=== PATIENT | male | born 1930 | race Caucasian/White ===

== ENCOUNTER 2018-08-29 15:13 | Emergency (ER) | payer OTHER ==
--- NOTE | 2018-08-29 16:30 | RAD REPORT ---
EXAM DESCRIPTION: CT - [id number] - 08/29/2018 3:59 pm CLINICAL HISTORY: Trauma, head and neck injury. acute head injury COMPARISON: No comparisons TECHNIQUE: Axial 5 mm thick images of the head were obtained. Axial 2 mm thick images of the cervical spine were obtained with sagittal and coronal reconstruction images generated and reviewed. All CT scans are performed using dose optimization technique as appropriate and may include automated exposure control or mA/KV adjustment according to patient size. FINDINGS: CT HEAD WITHOUT CONTRAST: No acute hemorrhage, hydrocephalus or extra-axial collection is identified.Advanced generalized brain atrophy is present with advanced periventricular and deep white matter chronic microvascular ischemi c changes.No areas of brain edema or midline shift. Polypoid mucosal thickening involves the inferior right maxillary antrum. The paranasal sinuses and m astoids are otherwise clear.The calvarium is intact. CT CERVICAL SPINE WITHOUT CONTRAST: No fracture or subluxation.No prevertebral soft tissues swelling is identified. IMPRESSION: No acute intracranial or cervical spine findings.
--- NOTE | 2018-08-29 16:43 | EDPHYS ---
Physician Documentation [facility] Name: Jose Morris Age: 87 yrs Sex: Male : 1930 Arrival Date: 08/29/2018 Time: 15:14 Bed 6 Private MD: ED Physician Miguel Sandoval HPI: 08/29 15:49 This 87 yrs old Male presents to ER via Ambulatory with complaints of Fall jmm Injury. 15:49 Details of fall: The patient fell from an upright position. Onset: The symptoms/episode jmm began/occurred acutely, just prior to arrival. This is an 87 year old male with a history of htn, hlp, hypothyroidism that presents to the ED with no complaints after hitting his head on a eugenio drawer. Patient states losing balance as he was standing next to his bed folding blankets. Denies LOC. Denies neck pain. Denies other injury. . Historical: - Allergies: 15:19 No Known Allergies; hj - PMHx: 15:19 stroke; Hypertension; Hyperlipidemia; Hypothyroidism; hj - PSHx: 15:19 None; hj - Immunization history:: Adult Immunizations unknown. - Social history:: Smoking status: Patient/guardian denies using tobacco. - Ebola Screening: : No symptoms or risks identified at this time. ROS: 15:49 Constitutional: Negative for fever, chills, and weight loss, Cardiovascular: Negative jmm for chest pain, palpitations, and edema, Respiratory: Negative for shortness of breath, cough, wheezing, and pleuritic chest pain. 15:49 Neuro: Negative for altered mental status, headache, loss of consciousness. 15:49 All other systems are negative. Exam: 15:49 Constitutional: This is a well developed, well nourished patient who is awake, alert, jmm and in no acute distress. Eyes: EOMI, no conjunctival erythema appreciated 15:49 Chest/axilla: Normal chest wall appearance and motion. 15:49 Abdomen/GI: Non distended, soft Back: Normal ROM Skin: General appearance color normal MS/ Extremity: Moves all extremities, no obvious deformities appreciated, no edema noted to the lower extremities Neuro: Awake and alert, normal gait Psych: Behavior is normal, Mood is normal, Patient is cooperative and pleasant 15:49 Head/face: small hematoma noted to the right side of the forehead. 15:49 Neck: C-spine: appears grossly normal. 15:49 Cardiovascular: Rate: normal, Rhythm: regular, Pulses: no pulse deficits are appreciated. 15:49 Respiratory: the patient does not display signs of respiratory distress, Respirations: normal, Breath sounds: are clear throughout. Vital Signs: 15:20 Pulse 91; Resp 18; Temp 98.1(TE); Pulse Ox 100% on R/A; Weight 83.46 kg; Height 6 ft. 0 hj in. (182.88 cm); 16:00 BP 127 / 89; Pulse 92; Resp 16; Pulse Ox 99% on R/A; ph 17:00 BP 117 / 76; Pulse 87; Resp 18; Temp 97.8; Pulse Ox 98% on R/A; ph 15:20 Body Mass Index 24.95 (83.46 kg, 182.88 cm) [place] Coma Score: 16:00 Eye Response: spontaneous(4). Verbal Response: oriented(5). Motor Response: obeys ph commands(6). Total: 15. Trauma Score (Adult): 16:00 Eye Response: spontaneous(1); Verbal Response: oriented(1); Motor Response: obeys ph commands(2); Systolic BP: > 89 mm Hg(4); Respiratory Rate: 10 to 29 per min(4); Luciana Score: 15; Trauma Score: 12 17:00 Eye Response: spontaneous(1); Verbal Response: oriented(1); Motor Response: obeys ph commands(2); Systolic BP: > 89 mm Hg(4); Respiratory Rate: 10 to 29 per min(4); [place] Score: 15; Trauma Score: 12 MDM: 15:49 Patient medically screened. [facility] 16:40 Data reviewed: vital signs, nurses notes. Counseling: I had a detailed discussion with krys the patient and/or guardian regarding: the historical points, exam findings, and any diagnostic results supporting the discharge/admit diagnosis, radiology results, the need for outpatient follow up, to return to the emergency department if symptoms worsen or persist or if there are any questions or concerns that arise at home. ED course: CT imaging studies are negative. Patient given head injury return precautions. Family understood and agrees with the plan of care. . 08/29 15:44 Order name: CT Head C Spine; Complete Time: 16:40 krys Administered Medications: No medications were administered Disposition: 08/30 06:56 Co-signature as Attending Physician, Miguel Sandoval MD I agree with the assessment and kdr plan of care. Disposition: 08/29/18 16:42 Discharged to Home. Impression: Superficial injury of head. - Condition is Stable. - Discharge Instructions: Head Injury, Adult. - Medication Reconciliation Form, Thank You Letter, Antibiotic Education, Prescription Opioid Use form. - Follow up: Private Physician; When: 2 - 3 days; Reason: Recheck today's complaints, Continuance of care, Re-evaluation by your physician. Signatures: Dispatcher [employer] EDMS Miguel Sandoval MD MD kdr Mickail, Joel, PA PA Rachel David, RN RN Fabio Alvarez RN RN Corrections: (The following items were deleted from the chart) 08/29 17:13 16:42 08/29/2018 16:42 Discharged to Home. Impression: Superficial injury of head. ph Condition is Stable. Forms are Medication Reconciliation Form, Thank You Letter, Antibiotic Education, Prescription Opioid Use. Follow up: Private Physician; When: 2 - 3 days; Reason: Recheck today's complaints, Continuance of care, Re-evaluation by your physician. krys
--- NOTE | 2018-08-29 16:43 | ER ---
Nurse's Notes [facility] Name: Jose Morris Age: 87 yrs Sex: Male : 1930 Arrival Date: 08/29/2018 Time: 15:14 Bed 6 Private MD: Diagnosis: Superficial injury of head Presentation: 08/29 15:16 Presenting complaint: Patient states: he was awake from a nap and got up and loss his hj balance and fell and hit head on the door; denies LOC; it happened around 1:15 pm today; reports taking Plavix; denies headache;denies N/V;. Transition of care: patient was not received from another setting of care. Onset of symptoms was August 29, 2018. Risk Assessment: Do you want to hurt yourself or someone else? Patient reports no desire to harm self or others. Initial Sepsis Screen: Does the patient meet any 2 criteria? No. Patient's initial sepsis screen is negative. Does the patient have a suspected source of infection? No. Patient's initial sepsis screen is negative. Care prior to arrival: None. 15:16 Method Of Arrival: Ambulatory 15:16 Acuity: AURY 3 15:21 Mechanism of Injury: Fall from standing position. Trauma event details: Injury occurred hj in the [facility], Injury occurred: at home. Injury occurred: August 29, 2018 Injury occurred at: 13:15. Trauma Activation: Alert Physician: ED Physician; Name: ; Notified At: ; Arrived At: Physician: General Surgeon; Name: ; Notified At: ; Arrived At: Physician: Radiology; Name: ; Notified At: ; Arrived At: Physician: Respiratory; Name: ; Notified At: ; Arrived At: Physician: Lab; Name: ; Notified At: ; Arrived At: Historical: - Allergies: 15:19 No Known Allergies; hj - PMHx: 15:19 stroke; Hypertension; Hyperlipidemia; Hypothyroidism; hj - PSHx: 15:19 None; hj - Immunization history:: Adult Immunizations unknown. - Social history:: Smoking status: Patient/guardian denies using tobacco. - Ebola Screening: : No symptoms or risks identified at this time. Screenin:22 Abuse screen: Denies threats or abuse. Denies injuries from another. Nutritional ph screening: No deficits noted. Tuberculosis screening: No symptoms or risk factors identified. Fall Risk Fall in past 12 months (25 points). Secondary diagnosis (15 points) CVA, No IV (0 pts). Ambulatory Aid- None/Bed Rest/Nurse Assist (0 pts). Gait- Impaired (20 pts.). Mental Status- Oriented to own ability (0 pts). Total Snell Fall Scale indicates High Risk Score (45 or more points). Fall prevention measures have been instituted. Side Rails Up X 2 Placed Close to Nursing Station Family Present and informed to notify staff if the need to leave the bedside As available patient and family educated on Fall Prevention Program and Strategies. Primary Survey: 16:00 NO uncontrolled hemorrhage observed. A: The patient is alert. Airway: patent, No ph supplemental oxygen in use on arrival. Oral cavity: clear, Trachea midline. Breathing/Chest: Respiratory pattern: regular, Respiratory effort: spontaneous, unlabored, Breath sounds: clear, bilaterally. Chest inspection: symmetrical rise and fall of the chest. Circulation: Skin color: pink, Skin temperature: warm, dry. Disability Alert. Exposure/Environment: There is no evidence of uncontrolled external bleeding. Obvious injury(ies) are noted at this time: small hematoma to R side of forehead. 17:00 Reassessment Airway Airway Patent Breathing/Chest Respiratory pattern Regular ph Circulation Color [place] Temperature Warm Dry Disability Alert. Assessment: 16:00 General: Appears in no apparent distress. comfortable, Behavior is calm, cooperative, ph appropriate for age. Pain: Denies pain. Neuro: Level of Consciousness is awake, alert, obeys commands, Oriented to person, place, time, situation, Denies weakness dizziness. Cardiovascular: Capillary refill < 3 seconds in bilateral fingers Patient's skin is warm and dry. Respiratory: Airway is patent Respiratory effort is even, unlabored. GI: No signs and/or symptoms were reported involving the gastrointestinal system. Patient currently denies abdominal pain, nausea, vomiting. Derm: Skin is intact, is fragile, Skin is pink, warm \T\ dry. Bruising that is on right side of forehead. 17:00 Reassessment: Patient appears in no apparent distress at this time. Patient and/or ph family updated on plan of care and expected duration. Pain level reassessed. Patient is alert, oriented x 3, equal unlabored respirations, skin warm/dry/pink. Pt d/c home w/ family. Vital Signs: 15:20 Pulse 91; Resp 18; Temp 98.1(TE); Pulse Ox 100% on R/A; Weight 83.46 kg; Height 6 ft. 0 hj in. (182.88 cm); 16:00 BP 127 / 89; Pulse 92; Resp 16; Pulse Ox 99% on R/A; ph 17:00 BP 117 / 76; Pulse 87; Resp 18; Temp 97.8; Pulse Ox 98% on R/A; ph 15:20 Body Mass Index 24.95 (83.46 kg, 182.88 cm) Luciana Coma Score: 16:00 Eye Response: spontaneous(4). Verbal Response: oriented(5). Motor Response: obeys ph commands(6). Total: 15. Trauma Score (Adult): 16:00 Eye Response: spontaneous(1); Verbal Response: oriented(1); Motor Response: obeys ph commands(2); Systolic BP: > 89 mm Hg(4); Respiratory Rate: 10 to 29 per min(4); [place] Score: 15; Trauma Score: 12 17:00 Eye Response: spontaneous(1); Verbal Response: oriented(1); Motor Response: obeys ph commands(2); Systolic BP: > 89 mm Hg(4); Respiratory Rate: 10 to 29 per min(4); [place] Score: 15; Trauma Score: 12 ED Course: 15:14 Patient arrived in ED. as 15:18 Triage completed. hj 15:21 Arm band placed on left wrist. 15:43 [facility] 15:43 Miguel Sandoval MD is Attending Physician. [facility] 15:59 CT Head C Spine In Process Unspecified. EDHI 15:59 CT completed. Patient tolerated procedure well. Patient moved to CT. Patient moved back co from CT. 16:17 Rachel Pelletier, RN is Primary Nurse. ph 16:17 Patient maintains SpO2 saturation greater than 95% on room air. Thermoregulation: warm ph blanket given to patient. 16:24 Patient has correct armband on for positive identification. Bed in low position. Call ph light in reach. Pulse ox on. NIBP on. Door closed. Noise minimized. Warm blanket given. 17:13 No provider procedures requiring assistance completed. Patient did not have IV access ph during this emergency room visit. Administered Medications: No medications were administered Intake: 16:00 PO: 0ml; Total: 0ml. ph Output: 16:00 Urine: 0ml; Total: 0ml. ph Outcome: 16:42 Discharge ordered by . denisse 17:10 Patient's length of stay was not longer than 2 hours. ph 17:13 Patient left the ED. ph 17:13 Discharged to home via wheelchair, with family. ph 17:13 Condition: good 17:13 Discharge instructions given to patient, family, Instructed on discharge instructions, follow up and referral plans. Demonstrated understanding of instructions, follow-up care. Signatures: Dispatcher [employer] EDMS Ashvin Palacio PA PA jmm Martinez, Amelia as Hall, Patricia, RN RN Fabio Vega RN RN Supa Vital Corrections: (The following items were deleted from the chart) 15:22 15:16 Presenting complaint: Patient states: he was awake from a nap and got up and loss hj his balance and fell and hit head on the door; denies LOC; it happened around 1:15 pm today; reports taking Plavix; denies headache; hj
== END 2018-08-29 17:13 | disposition home or self-care (01) ==
LOC: ER 15:13
DX: S00.90XA Unspecified superficial injury of unspecified part of head, initial encounter (principal); W01.190A Fall on same level from slipping, tripping and stumbling with subsequent striking against furniture, initial encounter; Y93.E2 Activity, laundry; Y92.003 Bedroom of unspecified non-institutional (private) residence as the place of occurrence of the external cause; I10 Essential (primary) hypertension; E78.5 Hyperlipidemia, unspecified; E03.9 Hypothyroidism, unspecified
CPT/HCPCS: 70450; 72125; 99284

== ENCOUNTER 2019-02-14 17:02 | Inpatient (IN) | payer OTHER ==
[2019-02-14] MEDS ORDERED: ONDANSETRON 4 MG/2 ML VIAL ONE (17:18)
[2019-02-14] MEDS ORDERED: MORPHINE 2 MG/ML SYR ONE ×2 (17:18→18:58)
[2019-02-14 17:51] LABS: Absolute Lymphocytes (CBC) 1.5 K/uL (0.7-4.9); Basophils % 0.9 % (0-1.3); Lymphocytes % 21.4 % (15.3-44.8); MPV 7.9 fL (7.6-11.3); RBC Red Blood Cell Count 4.11 M/uL (4.33-5.43)
[2019-02-14 17:53] LABS: Protime INR 0.94
[2019-02-14 18:03] LABS: Potassium 4.7 mmol/L (3.5-5.1)
--- NOTE | 2019-02-14 19:09 | EDPHYS ---
Physician Documentation [facility] Name: Jose Morris Age: 88 yrs Sex: Male : 1930 Arrival Date: 02/14/2019 Time: 17:08 Bed 26 Private MD: ED Physician Miguel Sandoval HPI: 02/14 17:20 This 88 yrs old Male presents to ER via EMS with complaints of fall. cp 17:20 Details of fall: The patient fell from an upright position, while standing. Onset: The cp symptoms/episode began/occurred just prior to arrival. Associated injuries: The patient sustained right leg. Patient reports he lost his balance while using walker and fell back onto ground. Denies hitting head and denies taking blood thinner medication. Historical: - Allergies: 17:16 No Known Allergies; mg2 - Home Meds: 17:16 Plavix 75 mg Oral tab [Active]; mg2 - PMHx: 17:16 Hyperlipidemia; Hypertension; Hypothyroidism; stroke; mg2 - PSHx: 17:16 None; mg2 - Social history:: Smoking status: Patient/guardian denies using tobacco, Patient/guardian denies using alcohol, street drugs, IV drugs. - Immunization history: Last tetanus immunization: - up to date. - Ebola Screening: : No symptoms or risks identified at this time. ROS: 17:30 Constitutional: Negative for body aches, chills, fever, poor PO intake. cp 17:30 Eyes: Negative for injury, pain, redness, and discharge. cp 17:30 Cardiovascular: Negative for chest pain, edema, palpitations. 17:30 Respiratory: Negative for cough, shortness of breath, wheezing. 17:30 Abdomen/GI: Negative for abdominal pain, nausea, vomiting, and diarrhea. 17:30 Back: Negative for pain at rest, pain with movement. 17:30 MS/extremity: Positive for injury or acute deformity, decreased range of motion, pain, of the right leg, Negative for paresthesias. 17:30 Skin: Negative for rash. 17:30 Neuro: Negative for altered mental status, dizziness, headache, loss of consciousness, weakness. 17:30 All other systems are negative. Exam: 17:35 Constitutional: The patient appears in no acute distress, alert, awake, cp non-diaphoretic, non-toxic, well developed, well nourished. 17:35 Head/Face: Normocephalic, atraumatic. cp 17:35 Eyes: Periorbital structures: appear normal, Pupils: equal, round, and reactive to light and accomodation, Extraocular movements: intact throughout, Conjunctiva: normal, no exudate, no injection, Sclera: no appreciated abnormality, Lids and lashes: appear normal, bilaterally. 17:35 ENT: External ear(s): are unremarkable, Ear canal(s): are normal, clear, TM's: bulging, is not appreciated, bilaterally, dullness, bilaterally, erythema, is not appreciated, bilaterally, Nose: is normal, Mouth: Lips: moist, Oral mucosa: pink and intact, moist, Posterior pharynx: is normal, airway is patent, no erythema, no exudate. 17:35 Neck: C-spine: vertebral tenderness, is not appreciated, crepitus, is not appreciated, ROM/movement: is normal, is supple, without pain, no range of motions limitations, no nuchal rigidity. 17:35 Chest/axilla: Inspection: normal, Palpation: is normal, no crepitus, no tenderness. 17:35 Cardiovascular: Rate: normal, Rhythm: regular, Pulses: Pulses are 2+ in right radial artery, right dorsalis pedis artery, left radial artery and left dorsalis pedis artery. Edema: ankle edema, that is mild, JVD: is not appreciated. 17:35 Respiratory: the patient does not display signs of respiratory distress, Respirations: normal, no use of accessory muscles, no retractions, no splinting, no tachypnea, labored breathing, is not present, Breath sounds: are clear throughout, no decreased breath sounds, no stridor, no wheezing. 17:35 Abdomen/GI: Inspection: abdomen appears normal, Bowel sounds: active, all quadrants, Palpation: abdomen is soft and non-tender, in all quadrants, voluntary guarding, is not appreciated. 17:35 Back: pain, is absent, ROM is normal, vertebral tenderness, is not appreciated. 17:35 Musculoskeletal/extremity: Extremities: grossly normal except: noted in the right leg: decreased ROM, deformity, pain, ROM: limited passive range of motion due to pain, in the right leg, Perfusion: the extremity is normally perfused throughout, Severe pain noted. 17:35 Skin: no rash present. 17:35 Neuro: Orientation: to person, place \T\ time. Mentation: is normal. Vital Signs: 17:12 BP 170 / 93; Pulse 57; Resp 18; Temp 97.5; Pulse Ox 97% on R/A; Weight 84.82 kg; Height mg2 6 ft. 0 in. (182.88 cm); Pain 10/10; 18:30 BP 150 / 78; Pulse 59; Resp 18; Pulse Ox 98% on R/A; mg2 19:00 BP 178 / 82; Pulse 69; Resp 18; Pulse Ox 98% on R/A; iw 20:52 BP 122 / 87; Pulse 85; Resp 18; Temp 98; Pulse Ox 96% on 3 lpm NC; mg2 17:12 Body Mass Index 25.36 (84.82 kg, 182.88 cm) mg2 Luciana Coma Score: 19:00 Eye Response: spontaneous(4). Verbal Response: oriented(5). Motor Response: obeys mg2 commands(6). Total: 15. 20:52 Eye Response: spontaneous(4). Verbal Response: oriented(5). Motor Response: obeys mg2 commands(6). Total: 15. Trauma Score (Adult): 19:00 Eye Response: spontaneous(1); Verbal Response: oriented(1); Motor Response: obeys mg2 commands(2); Systolic BP: > 89 mm Hg(4); Respiratory Rate: 10 to 29 per min(4); [place] Score: 15; Trauma Score: 12 20:52 Eye Response: spontaneous(1); Verbal Response: oriented(1); Motor Response: obeys mg2 commands(2); Systolic BP: > 89 mm Hg(4); Respiratory Rate: 10 to 29 per min(4); [place] Score: 15; Trauma Score: 12 MDM: 17:15 Patient medically screened. cp 17:35 Differential diagnosis: closed head injury, contusion, fracture, laceration, multiple cp trauma. 18:50 Data reviewed: vital signs, nurses notes, radiologic studies, plain films. cp 18:50 Test interpretation: by ED physician or midlevel provider: plain radiologic studies, cp xrays of right femur show right femoral neck fracture. 19:03 Response to treatment: the patient's symptoms have mildly improved after treatment. cp Physician consultation: Porfirio Mccabe MD was called at 19:03, was contacted at 19:03, regarding consult, patient's condition, would like admission per Dr. Rashida Polanco MD. 19:05 Physician consultation: Rashida Polanco MD was called at 19:05, was contacted at 19:05, cp regarding admission, to the telemetry unit. patient's condition. 02/14 17:15 Order name: Basic Metabolic Panel; Complete Time: 18:12 cp 02/14 18:13 Interpretation: Normal except: CL 108; BUN 29; CRE 1.36; GFR 50. cp 02/14 17:15 Order name: CBC with Diff; Complete Time: 18:12 cp 02/14 17:15 Order name: Creatinine for Radiology; Complete Time: 18:12 cp 02/14 17:15 Order name: Type And Screen; Complete Time: 01:47 cp 02/14 17:15 Order name: PT-INR; Complete Time: 18:12 cp 02/14 17:15 Order name: Ptt, Activated; Complete Time: 18:12 cp 02/14 17:49 Order name: Glucose, Ancillary Testing; Complete Time: 18:12 EDTX 02/14 18:49 Order name: Urine Microscopic Only; Complete Time: 01:47 cp 02/14 19:45 Order name: Urine Dipstick--Ancillary (enter results); Complete Time: 01:47 ar5 02/14 19:47 Order name: Comprehensive Metabolic Panel [facility] 02/14 19:47 Order name: Comprehensive Metabolic Panel [facility] 02/14 19:47 Order name: Magnesium EDTX 02/14 19:47 Order name: Magnesium EDTX 02/14 19:47 Order name: Phosphorus EDTX 02/14 17:15 Order name: XRAY Pelvis; Complete Time: 01:47 cp 02/14 17:15 Order name: XRAY Femur RIGHT; Complete Time: 01:47 cp 02/14 17:15 Order name: XRAY Tib Fib RIGHT; Complete Time: 01:47 cp 02/14 18:13 Order name: XRAY Chest (1 view); Complete Time: 01:47 cp 02/14 19:47 Order name: Phosphorus EDMS 02/14 19:47 Order name: Protime (+INR) EDMS 02/14 19:47 Order name: Protime (+INR) EDMS 02/14 19:47 Order name: PTT, Activated Partial Thromb EDTX 02/14 19:47 Order name: PTT, Activated Partial Thromb EDTX 02/14 19:50 Order name: NT PRO-BNP EDTX 02/14 19:50 Order name: NT PRO-BNP EDTX 02/14 19:50 Order name: Troponin I EDTX 02/14 19:50 Order name: Troponin I [facility] 02/14 20:01 Order name: ABO/RH no charge; Complete Time: 01:47 EDTX 02/14 17:15 Order name: Labs collected and sent; Complete Time: 17:24 cp 02/14 18:45 Order name: Huffman; Complete Time: 20:05 cp 02/14 18:49 Order name: EKG; Complete Time: 18:50 cp 02/14 18:49 Order name: EKG - Nurse/Tech; Complete Time: 20:05 cp 02/14 18:49 Order name: Urine Dipstick-Ancillary (obtain specimen); Complete Time: 20:05 cp 02/14 19:47 Order name: CONS Physician Consult EDTX 02/14 19:48 Order name: Heart Healthy EDTX 02/14 19:50 Order name: EKG Electrocardiogram EDTX 02/14 19:50 Order name: EKG Electrocardiogram EDTX Administered Medications: 17:23 Drug: Zofran 4 mg Route: IVP; Site: right antecubital; mg2 21:39 Follow up: Response: No adverse reaction; Marked relief of symptoms mg2 17:24 Drug: morphine 2 mg Route: IVP; Site: right antecubital; mg2 18:59 Drug: morphine 2 mg Route: IVP; Site: right antecubital; iw 21:39 Follow up: Response: No adverse reaction mg2 19:52 Drug: morphine 4 mg Route: IVP; Site: right antecubital; mg2 21:38 Follow up: Response: No adverse reaction; Marked relief of symptoms mg2 Disposition: 02/14/19 19:08 Hospitalization ordered by Rashida Polanco for Inpatient Admission. Preliminary diagnosis is Fracture of unspecified part of neck of right femur. - Bed requested for Telemetry/MedSurg (Inpatient). - Status is Inpatient Admission. mg2 - Condition is Stable. - Problem is new. - Symptoms have improved. UTI on Admission? No Addendum: 02/17/2019 08:27 Co-signature as Attending Physician, Miguel Sandoval MD I agree with the assessment and k dr plan of care. Signatures: Dispatcher [employer] EDMS Krissy Parkinson RN RN Miguel Sandoval MD MD [facility] Rosalba Cleaning, RN RN iw Abhi Allen, ZARINA PA cp Flavio Madison, MENDEZ RN mg2 Corrections: (The following items were deleted from the chart) 02/14 19:48 19:08 Hospitalization Ordered by Rashida Polanco MD for Inpatient Admission. Preliminary diagnosis is Fracture of unspecified part of neck of right femur. Bed requested for Telemetry/MedSurg (Inpatient). Status is Inpatient Admission. Condition is Stable. Problem is new. Symptoms have improved. UTI on Admission? No. cp 21:40 19:48 02/14/2019 19:08 Hospitalization Ordered by Rashida Polanco MD for Inpatient mg2 Admission. Preliminary diagnosis is Fracture of unspecified part of neck of right femur. Bed requested for Telemetry/MedSurg (Inpatient). Status is Inpatient Admission. Condition is Stable. Problem is new. Symptoms have improved. UTI on Admission? No. mw
--- NOTE | 2019-02-14 19:09 | ER ---
Nurse's Notes [facility] Name: Jose Morris Age: 88 yrs Sex: Male : 1930 Arrival Date: 02/14/2019 Time: 17:08 Bed 26 Private MD: Diagnosis: Fracture of unspecified part of neck of right femur Presentation: 02/14 17:09 Presenting complaint: EMS states: he was walking in the kitchen 1 hour APPRAISER with a mg2 walker when he accidentally lost balance, hit cabinet with his elbow and fell on his right knee backwards. he denies LOC or hitting his head but he is on blood thinner and sustained skin tears on his left arm. Transition of care: patient was not received from another setting of care. Onset of symptoms was February 14, 2019 at 16:00. Risk Assessment: Do you want to hurt yourself or someone else? Patient reports no desire to harm self or others. Initial Sepsis Screen: Does the patient meet any 2 criteria? No. Patient's initial sepsis screen is negative. Does the patient have a suspected source of infection? No. Patient's initial sepsis screen is negative. Care prior to arrival: dressing on the left arm. 17:09 Method Of Arrival: EMS: [place] [id number] 17:09 Acuity: AURY 3 mg2 20:55 Mechanism of Injury: Fall from standing position. Trauma event details: Injury mg2 occurred: February 14, 2019. Trauma Activation: Alert Physician: ED Physician; Name: ZARINA ramos; Notified At: ; Arrived At: Physician: General Surgeon; Name: ; Notified At: ; Arrived At: Physician: Radiology; Name: Anu Colmenares; Notified At: ; Arrived At: Physician: Respiratory; Name: ; Notified At: ; Arrived At: Physician: Lab; Name: ; Notified At: ; Arrived At: Historical: - Allergies: 17:16 No Known Allergies; mg2 - Home Meds: 17:16 Plavix 75 mg Oral tab [Active]; mg2 - PMHx: 17:16 Hyperlipidemia; Hypertension; Hypothyroidism; stroke; mg2 - PSHx: 17:16 None; mg2 - Social history:: Smoking status: Patient/guardian denies using tobacco, Patient/guardian denies using alcohol, street drugs, IV drugs. - Immunization history: Last tetanus immunization: - up to date. - Ebola Screening: : No symptoms or risks identified at this time. Screenin:32 Abuse screen: Denies threats or abuse. Denies injuries from another. Nutritional mg2 screening: No deficits noted. Tuberculosis screening: No symptoms or risk factors identified. Fall Risk Fall in past 12 months (25 points). IV access (20 points). Ambulatory Aid- Crutches/Cane/Walker (15 pts). Gait- Weak (10 pts.). Primary Survey: 18:00 NO uncontrolled hemorrhage observed. A: The patient is alert. Airway: patent. mg2 Breathing/Chest: Respiratory pattern: regular. Circulation: Cardiac rhythm: sinus rhythm with 1st degree heart block. 18:00 Disability Alert. Exposure/Environment: All clothing and personal items were removed. mg2 Forensic evidence collection is not deemed to be indicated at this time. Items placed in patient belonging bag. There is no evidence of uncontrolled external bleeding. Obvious injury(ies) are noted at this time: left arm abrasion/skin tear. 21:01 Reassessment Airway Airway Breathing/Chest Respiratory pattern Regular Respiratory mg2 effort Spontaneous Unlabored Circulation Color Crown Disability Alert. Assessment: 18:00 General: Appears in no apparent distress. comfortable, Behavior is calm, cooperative. mg2 Pain: Complains of pain in right leg Pain does not radiate. Pain currently is 8 out of 10 on a pain scale. Quality of pain is described as aching, Pain began suddenly, Is intermittent. 18:31 Reassessment: pt remains in radiology, family at bedside. iw 19:00 Reassessment: Patient appears in no apparent distress at this time. Patient and/or mg2 family updated on plan of care and expected duration. Pain level reassessed. Patient is alert, oriented x 3, equal unlabored respirations, skin warm/dry/pink. 20:00 Reassessment: Patient appears in no apparent distress at this time. Patient and/or mg2 family updated on plan of care and expected duration. Pain level reassessed. Patient is alert, oriented x 3, equal unlabored respirations, skin warm/dry/pink. patient verbalized pain in the right leg. provider informed. 20:58 Neuro: Level of Consciousness is awake, alert, obeys commands, Oriented to person, mg2 place, time, situation. Cardiovascular: Capillary refill < 3 seconds Patient's skin is warm and dry. Respiratory: Airway is patent Respiratory effort is even, unlabored, Respiratory pattern is regular, symmetrical. GI: No signs and/or symptoms were reported involving the gastrointestinal system. : No signs and/or symptoms were reported regarding the genitourinary system. EENT: No signs and/or symptoms were reported regarding the EENT system. Derm: Wound noted skin tear on the left arm. Musculoskeletal: Circulation, motion, and sensation intact. Capillary refill < 3 seconds, Reports pain in right leg. Injury Description: fracture. Vital Signs: 17:12 BP 170 / 93; Pulse 57; Resp 18; Temp 97.5; Pulse Ox 97% on R/A; Weight 84.82 kg; Height mg2 6 ft. 0 in. (182.88 cm); Pain 10/10; 18:30 BP 150 / 78; Pulse 59; Resp 18; Pulse Ox 98% on R/A; mg2 19:00 BP 178 / 82; Pulse 69; Resp 18; Pulse Ox 98% on R/A; iw 20:52 BP 122 / 87; Pulse 85; Resp 18; Temp 98; Pulse Ox 96% on 3 lpm NC; mg2 17:12 Body Mass Index 25.36 (84.82 kg, 182.88 cm) mg2 Luciana Coma Score: 19:00 Eye Response: spontaneous(4). Verbal Response: oriented(5). Motor Response: obeys mg2 commands(6). Total: 15. 20:52 Eye Response: spontaneous(4). Verbal Response: oriented(5). Motor Response: obeys mg2 commands(6). Total: 15. Trauma Score (Adult): 19:00 Eye Response: spontaneous(1); Verbal Response: oriented(1); Motor Response: obeys mg2 commands(2); Systolic BP: > 89 mm Hg(4); Respiratory Rate: 10 to 29 per min(4); Luciana Score: 15; Trauma Score: 12 20:52 Eye Response: spontaneous(1); Verbal Response: oriented(1); Motor Response: obeys mg2 commands(2); Systolic BP: > 89 mm Hg(4); Respiratory Rate: 10 to 29 per min(4); Ennice Score: 15; Trauma Score: 12 ED Course: 17:08 Patient arrived in ED. mg2 17:10 Abhi Allen PA is PHCP. cp 17:10 Miguel Sandoval MD is Attending Physician. cp 17:12 Triage completed. mg2 17:23 Flavio Madison, MENDEZ is Primary Nurse. mg2 17:24 No provider procedures requiring assistance completed. Inserted saline lock: 22 gauge mg2 in right antecubital area, using aseptic technique. Blood collected. by ОЛЬГА Zimmerman Tech. 17:24 Initial lab(s) drawn, by me, sent to lab. T\T\S collected, blood band applied to patient. jp3 17:24 Patient maintains SpO2 saturation greater than 95% on room air. jp3 17:33 Patient has correct armband on for positive identification. front desk monitor on. Pulse mg2 ox on. NIBP on. Door closed. Warm blanket given. Pillow given. 18:55 XRAY Pelvis In Process Unspecified. EDMS 18:56 XRAY Femur RIGHT In Process Unspecified. EDMS 19:06 Rashida Polanco MD is Hospitalizing Provider. cp 19:12 XRAY Tib Fib RIGHT In Process Unspecified. EDMS 19:12 XRAY Chest (1 view) In Process Unspecified. EDMS 19:20 Urine collected: Huffman catheter specimen, clear, angelika colored, Amount Returned: 100mL jp3 EKG done. 19:20 EKG done, by ED staff, reviewed by Abhi SRINIVASAN. jp3 19:45 Repeat lab(s) drawn. by me, sent to lab. jp3 20:30 Wound care: to 2 skin tears on the left lower arm. dressing done. mg2 21:00 Arm band placed on. mg2 21:01 Thermoregulation: warm blanket given to patient. mg2 21:01 Patient admitted, IV remains in place. mg2 Administered Medications: 17:23 Drug: Zofran 4 mg Route: IVP; Site: right antecubital; mg2 21:39 Follow up: Response: No adverse reaction; Marked relief of symptoms mg2 17:24 Drug: morphine 2 mg Route: IVP; Site: right antecubital; mg2 18:59 Drug: morphine 2 mg Route: IVP; Site: right antecubital; iw 21:39 Follow up: Response: No adverse reaction mg2 19:52 Drug: morphine 4 mg Route: IVP; Site: right antecubital; mg2 21:38 Follow up: Response: No adverse reaction; Marked relief of symptoms mg2 Intake: 20:52 PO: 0ml; Total: 0ml. mg2 Outcome: 19:08 Decision to Hospitalize by Provider. cp 21:02 Admitted to Tele accompanied by tech, room 406, with oxygen, with chart, Report called mg2 to MENDEZ Devlin 21:02 Condition: stable 21:02 Instructed on the need for admit, Demonstrated understanding of instructions. 21:03 Patient's length of stay in the Emergency Department was greater than 2 hours. mg2 21:40 Patient left the ED. mg2 Signatures: Dispatcher [employer] EDRosalba Glasgow RN RN iw Abhi Allen PA PA Flavio Morales RN RN mg2 Syd Blood jp3 Corrections: (The following items were deleted from the chart) 21:00 20:58 General: Appears in no apparent distress. comfortable, Behavior is calm, mg2 cooperative, mg2 21:00 20:58 Pain: Complains of pain in right leg Pain does not radiate. Pain currently is 8 mg2 out of 10 on a pain scale. Quality of pain is described as aching, Pain began suddenly, Is intermittent, mg2
--- NOTE | 2019-02-14 19:15 | RAD REPORT ---
EXAM DESCRIPTION: RAD - Femur Right - 02/14/2019 6:55 pm CLINICAL HISTORY: Leg pain status post fall FINDINGS: Markedly displaced subcapital femoral fracture with varus angulation at the fracture site. No dislocation
--- NOTE | 2019-02-14 19:15 | RAD REPORT ---
EXAM DESCRIPTION: RAD - Pelvis - 02/14/2019 6:55 pm CLINICAL HISTORY: Pelvic pain status post injury FINDINGS: Markedly displaced subcapital femoral fracture with varus angulation at the fracture site. No dislocation
--- NOTE | 2019-02-14 19:18 | RAD REPORT ---
EXAM DESCRIPTION: RAD - Tib Fib Right - 02/14/2019 7:12 pm CLINICAL HISTORY: Right leg pain FINDINGS: No fracture is seen
--- NOTE | 2019-02-14 19:19 | RAD REPORT ---
EXAM DESCRIPTION: Kimber Single View02/14/2019 7:12 pm CLINICAL HISTORY: Chest pain COMPARISON: none FINDINGS: A moderate hiatal hernia is suspected The lungs appear clear of acute infiltrate. The heart is normal size IMPRESSION: No acute abnormalities displayed
[2019-02-14] MEDS ORDERED: ACETAMINOPHEN 500 MG TAB PO PRN (19:40)
[2019-02-14] MEDS ORDERED: ONDANSETRON 4 MG/2 ML VIAL IV PRN (19:40)
[2019-02-14] MEDS ORDERED: MORPHINE 4 MG/ML SYR ONE (19:42)
[2019-02-14 20:12] LABS: Urine Blood NEGATIVE (NEG); Urine Glucose NEGATIVE (NEG); Urine Protein NEGATIVE (NEG); Urine pH 6.5 (5.0-7.0)
[2019-02-14 20:19] LABS: Urine Bacteria <20 /HPF (NONE SEEN); Urine Culture Reflex Order NOT NEEDED; Urine RBC NONE SEEN /HPF (NONE SEEN)
[2019-02-14] MEDS: NA CHLORIDE 0.9% 1,000 ML IV SCH (22:20)
[2019-02-14] MEDS ORDERED: CEFAZOLIN/SWI 1gm 1 GM/10 ML SYR IV SCH (23:00)
[2019-02-15] MEDS ORDERED: CEFAZOLIN/NS 1gm 1 GM/50 ML BAG IVPB SCH
[2019-02-15] MEDS: MORPHINE 4 MG/ML SYR IV PRN ×3 (00:06→17:50)
[2019-02-15 06:36] LABS: Absolute Lymphocytes (CBC) 1.7 K/uL (0.7-4.9); Basophils % 0.6 % (0-1.3); Hematocrit 34.3 % (39.6-49.0); Lymphocytes % 19.7 % (15.3-44.8); MPV 7.9 fL (7.6-11.3); RBC Red Blood Cell Count 3.84 M/uL (4.33-5.43)
[2019-02-15 06:48] LABS: Protime INR 0.99
[2019-02-15 07:03] LABS: Albumin 3.3 g/dL (3.4-5.0); Bilirubin Total 0.6 mg/dL (0.2-1.0); Magnesium 2.1 mg/dL (1.8-2.4); Potassium 4.4 mmol/L (3.5-5.1); Protein, Total 6.7 g/dL (6.4-8.2); Troponin I 0.05 ng/mL (0.0-0.045)
--- NOTE | 2019-02-15 07:34 | P.HP ---
Certification for Inpatient Patient admitted to: Inpatient With expected LOS: >2 Midnights Patient will require the following post-hospital care: Rehabilitation Practitioner: I am a practitioner with admitting privileges, knowledge of patient current condition, hospital course, and medical plan of care. Services: Services provided to patient in accordance with Admission requirements found in Title 42 Section 412.3 of the Code of Federal Regulations Patient History Date of Service: 02/14/19 Reason for admission: Right femur fracture History of Present Illness: Patient is an 88-year-old gentleman who came to the hospital after falling in the kitchen. He normally uses a walker to get around. He was walking in his kitchen he fell backwards. He stumbled and suffered a right femur fracture. He did not hit his head. He takes Plavix because he has had a history of strokes. He also has a history of hypertension, hypothyroidism, and dyslipidemia. Patient has been taking his Plavix regularly. He denied get lightheaded and did not have a syncopal event. He will be admitted to the hospital for a femur fracture of his right leg. He is having some pain of the right leg. The pain medication that he received in the ER is helpful. Will continue pain control at this time pending surgery. He will need rehabilitation after surgery so will also get social work consulted as well. Will get cardiac clearance prior to surgical intervention. Allergies No Known Allergies Allergy (Unverified 02/14/19 21:46) Home Medications: Acetaminophen [Tylenol Extra Strength] 1 tab PO BID 02/14/19 Aspirin 1 tab PO DAILY 02/14/19 Calcium Carbonate/Vitamin D3 [Calcium 600 with Vit D Chew Tb] 1 tab PO BID 02/14 Carvedilol 1 tab PO BID 02/14/19 Clopidogrel Bisulfate [Plavix] 1 tab PO DAILY 02/14/19 Furosemide [Lasix] 1 tab PO DAILY 02/14/19 Ipratropium [place] 1 vial IH BID 02/14/19 Levothyroxine Sodium 1 tab PO DAILY 02/14/19 Magnesium Oxide 1 tab PO BID 02/14/19 Multivitamins For Seniors 1 tab PO DAILY 02/14/19 Nitroglycerin 1 tab PO SEECOM PRN 02/14/19 Potassium Oral Tab [Klor-Con 10 mEq Tab*] 20 meq PO DAILY 02/14/19 Ranitidine [Zantac*] 1 tab PO BEDTIME 02/14/19 Sertraline [Zoloft*] 1 tab PO BEDTIME 02/14/19 Simvastatin 1 tab PO BEDTIME 02/14/19 - Past Medical/Surgical History Has patient received pneumonia vaccine in the past: Yes Diabetic: No -: Hyperlipidemia -: HTN -: Hypothyroidism -: Stroke 2017 -: CHF -: Curvature of the spine Past Surgical History: Unable to obtain - Family History Mother Notes: Hip Broken Father Notes: Skin Cancer Sister Notes: Ovarian cancer - Social History Smoking Status: Never smoker Alcohol use: No CD- Drugs: No Caffeine use: No Place of Residence: Home Review of Systems 10-point ROS is otherwise unremarkable Physical Examination - Vital Signs Temperature: 97.7 F Blood Pressure: 134/68 Pulse: 70 Respirations: 18 Pulse Ox (%): 98 - Physical Exam General: Alert, In no apparent distress, Oriented x3 HEENT: Atraumatic, PERRLA, Mucous membr. moist/pink, EOMI, Sclerae nonicteric Neck: Supple, 2+ carotid pulse no bruit, No LAD, Without JVD or thyroid abnormality Respiratory: Clear to auscultation bilaterally, Normal air movement Cardiovascular: Regular rate/rhythm, Normal S1 S2 Gastrointestinal: Normal bowel sounds, Soft and benign, Non-distended, No tenderness Musculoskeletal: No clubbing, No swelling, Tenderness (Right leg-on any kind of movement) Integumentary: No rashes Neurological: Normal speech, Normal tone, Sensation intact, Cranial nerves 3-12 intact, Normal affect, Abnormal gait, Abnormal strength (Right hip fracture) Lymphatics: No axilla or inguinal lymphadenopathy - Studies Laboratory Data (last 24 hrs) 02/14/19 17:20: PT 11.1, INR 0.94, APTT 29.2 02/14/19 17:20: Creatinine 1.34 H 02/14/19 17:20: WBC 7.2, Hgb 12.7 L, Hct 37.0 L, Plt Count 198 02/14/19 17:20: Sodium 143, Potassium 4.7, BUN 29 H, Creatinine 1.36 H, Glucose 95 Assessment & Plan - Problems (Diagnosis) (1) Right femoral fracture Current Visit: Yes Status: Acute Qualifiers: Encounter type: initial encounter Fracture type: closed Fracture alignment: displaced (2) History of CVA (cerebrovascular accident) Current Visit: Yes Status: Acute (3) History of hypertension Current Visit: Yes Status: Acute (4) History of hyperlipidemia Current Visit: Yes Status: Acute (5) History of hypothyroidism Current Visit: Yes Status: Acute - Plan Plan: 1. Orthopedic consultation 2. Pain control 3. Rehab consultation as well as PT evaluation after surgery 4. Cardiology consultation for cardiac clearance 5. Hold anti-platelet therapy 6. Continue Lovenox for DVT prophylaxis. Will hold it 12 hr prior to surgery 7. Continue with gentle hydration 8. Strict blood pressure and blood sugar control 9. GI and DVT prophylaxis Discharge Plan: Other Plan to discharge in: Greater than 2 days - Advance Directives Does patient have a Living Will: Yes Does patient have a Durable POA for Healthcare: Yes - Code Status/Comfort Care Code Status Assessed: Yes Code Status: Full Code Critical Care: No Time Spent Managing PTS Care (In Minutes): 45
[2019-02-15 07:43] VITALS: BMI 26.0
[2019-02-15] MEDS ORDERED: HOME MED 1 EA UNK (Magnesium Oxide [Magnesium Oxide] 1 TAB) PO SCH (09:00)
[2019-02-15] MEDS ORDERED: CEFAZOLIN/SWI 1gm 1 GM/10 ML SYR IVP SCH (09:00)
[2019-02-15] MEDS ORDERED: VIT D TB PO SCH (09:00)
[2019-02-15] MEDS ORDERED: IPRATROPIUM BROM 0.5MG/2.5ML IH SCH (09:00)
[2019-02-15] MEDS ORDERED: CALCIUM CARBONATE PO SCH (09:00)
[2019-02-15] MEDS ORDERED: VITAMIN D3 PO SCH (09:00)
[2019-02-15] MEDS: POTASSIUM CL SA 10 MEQ TAB PO SCH (09:27)
[2019-02-15] MEDS: CALCIUM CARB 500MG/VIT D 200 IU TAB PO SCH ×2 (09:27→21:47)
[2019-02-15] MEDS: CARVEDILOL 12.5 MG TAB PO SCH ×2 (09:28→21:46)
[2019-02-15] MEDS: FUROSEMIDE 20 MG TABLET PO SCH (09:28)
[2019-02-15] MEDS: ENOXAPARIN 30 MG/0.3 ML SQ SCH ×2 (09:29→21:46)
[2019-02-15] MEDS: MAGNESIUM OXIDE 400 MG TAB PO SCH ×2 (09:29→21:48)
[2019-02-15] MEDS ORDERED: HYDROCODONE/APAP 5/325 MG TAB PO PRN (09:43)
--- NOTE | 2019-02-15 09:44 | P.PN ---
Subjective Date of Service: 02/15/19 (Hospitalist) Chief Complaint: Right femur fracture Patient is complaining of pain alert responsive cooperative apparently he fell denies any chest pain shortness of breath Review of Systems General: Weakness Musculoskeletal: As per HPI Physical Examination - Vital Signs Temperature: 98.4 F Blood Pressure: 140/75 Pulse: 74 Respirations: 20 Pulse Ox (%): 98 - Physical Exam General: Alert, Oriented x3, Moderate distress Respiratory: Clear to auscultation bilaterally Cardiovascular: No edema, Normal S1 S2 - Studies Laboratory Data (last 24 hrs) 02/14/19 17:20: PT 11.1, INR 0.94, APTT 29.2 02/14/19 17:20: Creatinine 1.34 H 02/14/19 17:20: WBC 7.2, Hgb 12.7 L, Hct 37.0 L, Plt Count 198 02/14/19 17:20: Sodium 143, Potassium 4.7, BUN 29 H, Creatinine 1.36 H, Glucose 95 Assessment & Plan - Problems (Diagnosis) (1) Right femoral fracture Current Visit: Yes Status: Acute Plan: Patient is 88 years of age admitted with right-sided subcapital femoral fracture complaining of pain vital signs are stable labs reviewed renal function is mildly impaired he orthopedics consulat patient's Plavix is on hold is otherwise stable and cleared for surgery Qualifiers: Encounter type: subsequent encounter Fracture type: closed Fracture alignment: displaced
--- NOTE | 2019-02-15 12:29 | EKG ---
Test Date: 2019-02-15 Test Time: 06:42:52 Circuit Breaker Supervisor: RT-O MEASUREMENT RESULTS: Intervals: Rate: 68 WI: 290 QRSD: 104 QT: 402 QTc: 427 [place]: P: 26 WI: 290 QRS: -15 T: -16 INTERPRETIVE STATEMENTS: Sinus rhythm with 1st degree AV block Incomplete right bundle branch block Nonspecific ST and T wave abnormality Abnormal ECG Compared to ECG 02/14/2019 19:57:14 Incomplete right bundle-branch block now present Left-axis deviation no longer present Prolonged QT interval no longer present ST (T wave) deviation still present Electronically Signed On 02-15-19 12:28:10 CDT by Jeremie Cooper
--- NOTE | 2019-02-15 12:30 | EKG ---
Test Date: 2019-02-14 Test Time: 19:57:14 Wheelchair Van Operator First Responder: JEWELS MEASUREMENT RESULTS: Intervals: Rate: 82 LA: 316 QRSD: 104 QT: 436 QTc: 509 [place]: P: LA: 316 QRS: -40 T: 25 INTERPRETIVE STATEMENTS: Sinus rhythm with 1st degree AV block Left axis deviation Nonspecific ST and T wave abnormality Prolonged QT Abnormal ECG No previous ECG available for comparison Electronically Signed On 02-15-19 12:29:01 CDT by Jeremie Cooper
--- NOTE | 2019-02-15 15:16 | CON ---
Date of Consultation: 02/14/2019 Reason For Consultation: Right hip pain. History Of Present Illness: Mr. Matamoros an 88-year-old male, who presented to the ER yesterday after sustaining a fall onto his right side. He reports immediate pain to the right hip and was brought t o the emergency room. X-rays in the ER demonstrated displaced right femoral neck fracture. Prior to the fall, patient mobilized using a walker and a cane with difficulty. He denies any other musculos keletal complaints at this time. He did have an abrasion to his left forearm, but otherwise no other musculoskeletal complaints. He does take Plavix. He has history of stroke and CHF and his last dos e of Plavix was on this morning, Sunday, February 14. Review of Systems: As above, otherwise negative. Past Medical History: Hyperlipidemia, hypertension, hypothyroidism, history of stroke, CHF. Medications: Tylenol, aspirin, calcium carbonate, carvedilol, Plavix, Lasix, ipratropium bromide, le vothyroxine, magnesium oxide, multivitamins, nitroglycerin, potassium, Zantac, Zoloft, and simvastati n. Allergies: NO KNOWN DRUG ALLERGIES. Social History: Denies tobacco, alcohol, or drug use. Lives at home with his daughter. Physical Examination: General: No apparent distress. HEENT: He is normocephalic, atraumatic. Neck: Supple. Cardiovascular: Brisk cap refill to all digits. Chest: Nonlabored breathing. Abdomen: Nondistended. Psychiatric: Responses to exam. Musculoskeletal: Right lower extremity pain with range of motion of the right hip. Tenderness to pa lpation over the right hip. No tenderness to palpation over the distal femur, tibia, foot, or ankle. He does have minimal range of motion of his right foot and ankle, however, ankle dorsiflexion, plan tar flexion intact as well as EHL. He reports weakness secondary to his pain at this time. Left low er extremity functional range of motion without pain. No gross deformities. No obvious dislocations . Bilateral upper extremities functional range of motion without pain. No gross deformities. No ob vious dislocations. Does have a dressing on his left forearm over his abrasion. Neurovascularly int act to his left upper extremity. Imaging: X-rays demonstrate a right displaced femoral neck fracture. Assessment And Plan: Mr. Matamoros is an 88-year-old male with a right displaced femoral neck fracture . We will await medical and cardiac clearance given his medical history. His daughter does report a history of congestive heart failure. Given his history of Plavix taken this morning, we will wait 4 8 to 72 hours after his last dose of Plavix prior to surgery to aid with minimizing blood loss. He w ill likely need placement postoperatively with inpatient rehabilitation or a long term facility . I discussed with the patient and his daughter at length his injuries as well as need for right hip hemiarthroplasty. Risks and benefits associated with the procedure were discussed with the patient and his daughter at length and they express understanding. We will proceed with operative treatment planned on Sunday at lunchtime. MARCO A/CHERRIE Voice ID: [id number] Report ID: [id number]
[2019-02-15] MEDS: NA CHLORIDE 0.9% 1,000 ML IV SCH ×2 (16:00→17:50)
[2019-02-15] MEDS ORDERED: ENOXAPARIN 40 MG/0.4 ML SQ SCH (17:00)
[2019-02-15] MEDS ORDERED: ATORVASTATIN 20 MG TAB PO SCH (21:00)
[2019-02-15] MEDS ORDERED: HOME MED 1 EA UNK (Simvastatin [Simvastatin] 1 TAB) PO SCH (21:00)
[2019-02-15] MEDS: RANITIDINE 150 MG TABLET PO SCH ×2 (21:47→21:48)
[2019-02-15] MEDS: SERTRALINE HCL 50 MG TAB PO SCH (21:48)
--- NOTE | 2019-02-15 22:06 | P.PN ---
Subjective Date of Service: 02/15/19 Chief Complaint: Right femur fracture Awaiting cardiac clearance. Reports pain with the right hip. Physical Examination - Vital Signs Temperature: 98.9 F Blood Pressure: 146/82 Pulse: 70 Respirations: 20 Pulse Ox (%): 97 - Physical Exam General: Alert, In no apparent distress Musculoskeletal: Other (RLE; pain with ROM of the right hip; ttp over the right hip; NVI distally with some weakness of ankle dorsiflexion/plantarflexion secondary to pain) Assessment And Plan - Plan Koby is an 88 yo male with a right displaced femoral neck fracture -awaiting cardiac clearance -plan on surgery on Saturday 02/17 for right hip hemiarthroplasty -hold lovenox after tomorrow's AM dose
[2019-02-16] MEDS: LEVOTHYROXINE SOD 0.025 MG TAB PO SCH (05:39)
[2019-02-16] MEDS: MORPHINE 4 MG/ML SYR IV PRN (05:42)
[2019-02-16] MEDS: CALCIUM CARB 500MG/VIT D 200 IU TAB PO SCH ×2 (09:16→21:54)
[2019-02-16] MEDS: ENOXAPARIN 30 MG/0.3 ML SQ SCH (09:16)
[2019-02-16] MEDS: MAGNESIUM OXIDE 400 MG TAB PO SCH ×2 (09:16→21:54)
[2019-02-16] MEDS: FUROSEMIDE 20 MG TABLET PO SCH (09:17)
[2019-02-16] MEDS: POTASSIUM CL SA 10 MEQ TAB PO SCH (09:17)
[2019-02-16] MEDS: CARVEDILOL 12.5 MG TAB PO SCH ×2 (09:17→21:55)
--- NOTE | 2019-02-16 10:12 | P.PN ---
Subjective Date of Service: 02/16/19 Chief Complaint: Right femur fracture Patient is confused agitated delirious hallucinating very restless wants to go home Review of Systems is unable to be obtained Physical Examination - Vital Signs Temperature: 98.2 F Blood Pressure: 139/80 Pulse: 71 Respirations: 20 Pulse Ox (%): 97 - Physical Exam General: Moderate distress HEENT: Atraumatic Neck: Supple Respiratory: Clear to auscultation bilaterally Cardiovascular: No edema, Normal pulses Assessment & Plan - Problems (Diagnosis) (1) Right femoral fracture Current Visit: Yes Status: Acute Plan: Patient scheduled for surgery tomorrow Qualifiers: Encounter type: subsequent encounter Fracture type: closed Fracture alignment: displaced (2) Delirium Current Visit: Yes Status: Acute Plan: Patient is become delirious confused agitated of ordered ABGs pulse oximetry Haldol and labs vital signs stable
[2019-02-16 11:15] LABS: Potassium 4.2 mmol/L (3.5-5.1)
[2019-02-16 11:30] LABS: Arterial Blood Carboxyhemoglob 1.7 % (0-1.5); Blood Gas Oxyhemoglobin 89.8 % (94-97); Blood O2 Saturation 91.9 % (92-98.5)
--- NOTE | 2019-02-16 11:40 | RAD REPORT ---
EXAM DESCRIPTION: RAD - Chest Single View - 02/16/2019 10:45 am CLINICAL HISTORY: SOB Chest pain. COMPARISON: Chest Single View dated 02/14/2019 FINDINGS: Portable technique limits examination quality. The lungs are grossly clear. The heart is normal in size. Tortuous thoracic aorta. IMPRESSION: No acute intrathoracic process suspected.
[2019-02-16] MEDS: NA CHLORIDE 0.9% 1,000 ML IV SCH ×2 (12:00→17:08)
[2019-02-16] MEDS: HALOPERIDOL LACT 5 MG/ML INJ IV PRN ×2 (13:29→20:39)
--- NOTE | 2019-02-16 17:07 | RAD REPORT ---
EXAM DESCRIPTION: RAD - Elbow Right 2 View - 02/16/2019 3:32 pm CLINICAL HISTORY: pain, had a fall at home COMPARISON: None FINDINGS: Right forearm and right elbow- multiple projections are submitted Anterior fat pad is elevated. This would suggest an elbow joint effusion. No fracture is identified, however, if pain persists recommend MR imaging of the elbow to assess for possible radiographically o ccult fracture.
[2019-02-16 17:23] LABS: Absolute Lymphocytes (CBC) 1.4 K/uL (0.7-4.9); Basophils % 0.5 % (0-1.3); Hematocrit 33.8 % (39.6-49.0); RBC Red Blood Cell Count 3.75 M/uL (4.33-5.43)
[2019-02-16] MEDS: RANITIDINE 150 MG TABLET PO SCH (21:54)
[2019-02-16] MEDS: SERTRALINE HCL 50 MG TAB PO SCH (21:55)
[2019-02-17] MEDS ORDERED: CEFAZOLIN/NS 1gm 1 GM/50 ML BAG IVPB SCH
[2019-02-17] MEDS: CEFAZOLIN/SWI 1gm 1 GM/10 ML SYR IVP SCH ×4 (00:05→16:51)
[2019-02-17] MEDS: HALOPERIDOL LACT 5 MG/ML INJ IV PRN (00:06)
--- NOTE | 2019-02-17 01:54 | CON ---
Date of Consultation: 02/15/[address] Gifford on 02/14/2019. Reason For Consultation: Hip fracture, cardiac clearance. History Of Present Illness: Mr. Matamoros is an 88-year-old white male. He is known to me from previo us office visits. He has history of hypertension, dyslipidemia, hypothyroidism, gastroesophageal ref lux disease, COPD, and history of CVA in the past. He came in after a fall, sustained a hip fracture . There were no cardiac symptoms reported. Denied any syncope. Denied any palpitation. He denied any chest pain or shortness of breath or nausea, vomiting, or diaphoresis. He denied PND, orthopnea, or pedal edema. He denied any fever or chills. Allergies: NONE. Past Medical History: As stated above. Review of Systems: Negative. Social History: Negative. Family History: Noncontributory. Medications: At home include aspirin, Plavix, Coreg, inhalers, Lasix, Zantac, Zoloft, Zocor, potassi um, and thyroid. Physical Examination: General: He appeared to be in no acute distress. Vital Signs: Stable. He was afebrile. He was in normal sinus rhythm. HEENT: Negative. Neck: Supple. No bruit, lymphadenopathy, JVD, or thyromegaly. Chest: Clear to auscultation and percussion. Cardiac: Revealed regular rhythm and rate without any murmurs, gallops, or rubs. Abdomen: Benign. Extremities: Revealed no clubbing, cyanosis, or edema. Skin: Dry and intact. Diagnostic Data: Creatinine of 1.33, troponin is 0.05. BNP is 1556. The rest of it was unremarkabl e. EKG is nonspecific. Chest x-ray is negative. Impression And Plan: Mr. Matamoros is a patient who has hypertension, dyslipidemia, history of cerebro vascular accident. He is stable hemodynamically. He does not have any cardiac symptoms. He does no t have any clinical evidence of CAD or congestive heart failure. He has had a cardiac workup in my o ffice including echocardiogram and stress test in the past that were negative. His EKG is unremarkab le and chest x-ray is negative and from my standpoint, he is at low risk for perioperative mortalitie s. His other problems include hypothyroidism, depression, gastroesophageal reflux disease. These ar e all clear. The patient has had history of cerebrovascular accident in the past that is stable. He is on aspirin and Plavix for that. His elevated troponin and BNP are not clinically significant con sidering his age and previous medical history. His creatinine is slightly elevated at 1.33 and we ne ed to keep an eye on that. I will follow Mr. Matamoros postoperatively. JULES/CHERRIE Voice ID: [id number] Report ID: [id number]
[2019-02-17] MEDS: LEVOTHYROXINE SOD 0.025 MG TAB PO SCH (04:08)
[2019-02-17 06:01] LABS: Absolute Lymphocytes (CBC) 1.4 K/uL (0.7-4.9); Basophils % 0.3 % (0-1.3); Hematocrit 30.4 % (39.6-49.0); MPV 8.2 fL (7.6-11.3); RBC Red Blood Cell Count 3.38 M/uL (4.33-5.43)
[2019-02-17 06:17] LABS: Magnesium 2.3 mg/dL (1.8-2.4)
[2019-02-17] MEDS: NA CHLORIDE 0.9% 1,000 ML IV SCH ×2 (08:00→16:51)
--- NOTE | 2019-02-17 08:23 | RAD REPORT ---
EXAM DESCRIPTION: RAD - Chest Single View - 02/17/2019 7:22 am CLINICAL HISTORY: SOB Chest pain. COMPARISON: Chest Single View dated 02/16/2019; Chest Single View dated 02/14/2019 FINDINGS: Portable technique limits examination quality. The lungs are grossly clear. The heart is upper limit of normal with a tortuous thoracic aorta. No di splaced fractures. IMPRESSION: Stable chest since 02/16/2019.
[2019-02-17] MEDS: CARVEDILOL 12.5 MG TAB PO SCH ×2 (08:54→20:46)
[2019-02-17] MEDS: POTASSIUM CL SA 10 MEQ TAB PO SCH (08:54)
[2019-02-17] MEDS: FUROSEMIDE 20 MG TABLET PO SCH (08:54)
[2019-02-17] MEDS: CALCIUM CARB 500MG/VIT D 200 IU TAB PO SCH ×2 (08:55→20:48)
[2019-02-17] MEDS: MAGNESIUM OXIDE 400 MG TAB PO SCH ×2 (08:55→20:48)
--- NOTE | 2019-02-17 09:42 | P.PN ---
Subjective Date of Service: 02/17/19 Primary Care Provider: Unknown Chief Complaint: Right femur fracture Subjective: Other (Patient stable at this time. Patient NPO for surgery today.) Physical Examination - Vital Signs Temperature: 97.9 F Blood Pressure: 130/60 Pulse: 65 Respirations: 24 Pulse Ox (%): 94 - Physical Exam General: Alert, In no apparent distress, Oriented x2 HEENT: Atraumatic Neck: Supple Respiratory: Clear to auscultation bilaterally, Normal air movement Cardiovascular: Normal pulses, Regular rate/rhythm Gastrointestinal: Normal bowel sounds, Soft and benign, Non-distended, No tenderness, No masses, No rebound, No guarding Musculoskeletal: No tenderness, No warmth Integumentary: No erythema, No warmth, No cyanosis Neurological: Normal speech, Normal strength at 5/5 x4 extr, Normal tone, Normal affect - Studies Medications List Reviewed: Yes Assessment & Plan Discharge Plan: Other (inpatient rehab vs SNF) Plan to discharge in: Greater than 2 days Physician Review Additional Text: Impression: Right subcapital femur fracture status post mechanical fall Delirium Acute renal injury Hypertension Hypothyroidism Hyperlipidemia History of CVA Anemia likely of chronic disease Depression with Anxiety Plan: Right subcapital femur fracture status post mechanical fall: Patient is NPO for Surgery by Orthopedics. Cardiology has seen and cleared the patient for surgery. Will need to start DVT prophylaxis after surgery. Will need inpatient rehab vs SNF after surgery. Will review meds and monitor closely. I will turn the service over to Dr. Santos tomorrow. I will go over care with her. Delirium: This appears improved. Acute renal injury: Continue with IV fluids. If taking good oral intake then will DC fluids. Hypertension: Restart med. Will monitor closely and adjust. Hypothyroidism: Restart medication. Hyperlipidemia: Restart medication. History of CVA: Continue with DVT prophylaxis. Anemia likely of chronic disease: Will monitor closely. Will check Iron and B12 levels. Depression with Anxiety: Continue with meds. Will monitor closely. Time Spent Managing Pts Care (In Minutes): 55
[2019-02-17 10:32] LABS: Ferritin 92.6 ng/mL (26-388)
--- NOTE | 2019-02-17 10:39 | RAD REPORT ---
EXAM DESCRIPTION: RAD - Forearm Right - 02/16/2019 3:32 pm CLINICAL HISTORY: Pain, had a fall at home COMPARISON: None FINDINGS: Right forearm and right elbow- multiple projections are submitted Anterior fat pad is elevated. This would suggest an elbow joint effusion. No fracture is identified, however, if pain persists recommend MR imaging of the elbow to assess for possible radiographically o ccult fracture.
[2019-02-17] MEDS ORDERED: Ringers Lactate 1,000 ML IV ONE ×2 (11:29→13:53)
[2019-02-17] MEDS ORDERED: TRANEXAMIC ACID 1,000 MG in NA CHLORIDE 0.9% 50 ML IV SCH (11:45)
[2019-02-17] MEDS ORDERED: PROPOFOL 200 MG/20 ML VIAL IV ONE ×3 (12:06→13:50)
[2019-02-17] MEDS ORDERED: FENTANYL CITR 100 MCG/2 ML ONE (12:07)
[2019-02-17] MEDS ORDERED: LIDOCAINE 2% MPF 5 ML VIAL ONE (12:07)
[2019-02-17] MEDS ORDERED: ROCURONIUM 50 MG/5 ML VIAL IV ONE (12:10)
[2019-02-17] MEDS ORDERED: ONDANSETRON 4 MG/2 ML VIAL ONE (12:10)
[2019-02-17] MEDS ORDERED: Phenylephrine HCl 10 MG/ML 1 ML VIAL ONE (12:23)
[2019-02-17] MEDS ORDERED: NS 0.9% VIAL 20 ML ONE (12:24)
[2019-02-17] MEDS ORDERED: EPHEDRINE SULF 50 MG/ML VIAL ONE (12:24)
[2019-02-17] MEDS ORDERED: ETOMIDATE 20 MG/10 ML VIAL IV ONE (12:26)
[2019-02-17] MEDS ORDERED: KETAMINE HCL 500 MG/5 ML VIAL ONE (12:26)
[2019-02-17] MEDS ORDERED: CEFAZOLIN SODIUM 1 GM/VIAL ONE (13:28)
--- NOTE | 2019-02-17 15:26 | P.BOP ---
Preoperative diagnosis: right femoral neck fracture Postoperative diagnosis: same Primary procedure: right hip hemiarthroplasty [employer] Warden: NONE,NONE Estimated blood loss: 100 cc Specimen: right femoral head Findings: see dictation Anesthesia: General Complications: None Implants: 12 mm Biomet press fit echo stem, 53 mm shell, 28 standard head Fluids & blood products: per anesthesia record Transferred to: Recovery Room Condition: Good
[2019-02-17] MEDS ORDERED: DOCUSATE NA 100 MG CAP PO PRN (15:32)
[2019-02-17 15:59] LABS: Hematocrit 28.9 % (39.6-49.0)
--- NOTE | 2019-02-17 16:13 | RAD REPORT ---
EXAM DESCRIPTION: RAD - Hip Right 2 View - 02/17/2019 4:08 pm CLINICAL HISTORY: Right hip surgery FINDINGS: Right hip arthroplasty. Prosthesis is in good position. No fracture or dislocation
[2019-02-17] MEDS ORDERED: ENOXAPARIN 40 MG/0.4 ML SQ SCH (17:00)
[2019-02-17] MEDS: RANITIDINE 150 MG TABLET PO SCH (20:48)
[2019-02-17] MEDS: SERTRALINE HCL 50 MG TAB PO SCH (20:48)
[2019-02-18] MEDS: CEFAZOLIN/SWI 1gm 1 GM/10 ML SYR IVP SCH ×2 (00:26→09:35)
[2019-02-18] MEDS: NA CHLORIDE 0.9% 1,000 ML IV SCH (04:00)
[2019-02-18 04:43] LABS: Absolute Lymphocytes (CBC) 1.1 K/uL (0.7-4.9); Basophils % 0.2 % (0-1.3); Hematocrit 28.5 % (39.6-49.0); Lymphocytes % 11.5 % (15.3-44.8); MPV 8.3 fL (7.6-11.3); RBC Red Blood Cell Count 3.18 M/uL (4.33-5.43)
[2019-02-18 04:57] LABS: Magnesium 2.2 mg/dL (1.8-2.4)
[2019-02-18] MEDS: LEVOTHYROXINE SOD 0.025 MG TAB PO SCH (05:54)
[2019-02-18] MEDS ORDERED: ENOXAPARIN 40 MG/0.4 ML SQ SCH (09:00)
[2019-02-18] MEDS: CALCIUM CARB 500MG/VIT D 200 IU TAB PO SCH ×2 (09:00→20:41)
[2019-02-18] MEDS: MAGNESIUM OXIDE 400 MG TAB PO SCH ×2 (09:00→20:33)
[2019-02-18] MEDS: CARVEDILOL 12.5 MG TAB PO SCH ×2 (09:33→20:29)
[2019-02-18] MEDS: POTASSIUM CL SA 10 MEQ TAB PO SCH (09:33)
[2019-02-18] MEDS: FUROSEMIDE 20 MG TABLET PO SCH (09:40)
[2019-02-18 10:07] LABS: Arterial Blood Carboxyhemoglob 1.6 % (0-1.5); Blood Gas Oxyhemoglobin 94.8 % (94-97); Blood O2 Saturation 96.8 % (92-98.5)
--- NOTE | 2019-02-18 10:12 | OP ---
Date of Procedure: 02/17/2019 Surgeon: Porfirio Mccabe MD Preoperative Diagnosis: Right displaced femoral neck fracture. Postoperative Diagnosis: Right displaced femoral neck fracture. Procedure Performed: Right hip hemiarthroplasty. Anesthesia: General endotracheal. Fluids: Per Anesthesia record. Estimated Blood Loss: 100 mL. Complications: None. Implants: Biomet Size 12 standard echo stem with 53 mm bipolar shell, 28 mm head standard length. Indication For Procedure: Jose is an 88-year-old male who presented to the ER after sustaining a fall on to his right side with subsequent pain in the right hip and inability to bear weight. X-rays demonstrated displaced right femoral neck fracture. Discussed with the patient and his family at length, risks and benefits associated with operative and nonoperative treatment. They expressed understanding and elected to proceed with operative treatment. Description Of Procedure: After informed consent was obtained, the patient was identified in the preoperative holding area. The right lower extremity was marked. The patient was taken back to the operating room, transferred to the operating table in a supine fashion, and placed under general endotracheal anesthesia. He was then placed in the left lateral decubitus position with his extremities well padded and an axillary roll placed. The right lower extremity was then prepped and draped in usual sterile fashion. A time-out was initiated. The correct patient and procedure were confirmed and identified. The patient did receive his preoperative prophylactic antibiotics. Approximately, an 8 cm curvilinear incision was made centered over the greater trochanter with the standard posterior approach to the right hip. Dissection was taken down to the tensor fascia isaac, which was split and divided both proximally and distally. A Charnley retractor was then placed for exposure. Dissection was then taken down. The short external rotators were tagged and released off the greater trochanter. A T-shaped capsulotomy was then performed and tagged using a #5 Ethibond. Hematoma was evacuated. A corkscrew was then used to remove the femoral head which was measured as size 53. The femoral head was selected. A 53 trial was then placed with good overall fit within the acetabulum. The trial was then removed. Then, attention was taken to the proximal femur. First, a cookie cutter was used and placed down proximal femur and this was followed by canal finder and lateralizer. After this, reamer was placed down the femoral shaft in antegrade fashion from size 7 mm to size 12 mm femur was selected which overall fit. This was followed by broaches with a size 7 mm broach down to the size 12 mm broach was placed in sequential fashion. There is overall fit with the 12 mm broach. Neck remnants were then debrided using a rongeur and the neck was placed and a size 53 mm shell was placed. Hip was reduced. There was good overall leg length as well as good stability using those implants. The trial implants were then removed and was irrigated thoroughly with normal saline down the femoral canal and acetabulum as well as surrounding soft tissue. The final implants were placed using a 12 mm standard Echo Biomet stem followed by a standard 28 mm head and 53 mm bipolar shell. Final implants were then reduced. There was good overall leg length as well as stability of the right hip. The wound was then irrigated thoroughly with normal saline. The capsule was approximated using 5-0 Ethibond. The tensor fascia isaac was approximated using a 0 Vicryl and the superficial fascia was approximated using a 0 Vicryl. Subcutaneous tissues were approximated using 2-0 Vicryl. Skin was approximated using stapler. Sterile dressings were applied. The patient was awakened and transferred to PACU in stable condition. Postoperative Plan: Dr. Figueroa continue to monitor the patient and manage him medically. He will start Lovenox tomorrow. Physical therapy will be consulted to aid with mobilization. MARCO A/CHERRIE Voice ID: [id number] Report ID: [id number] CANDI
--- NOTE | 2019-02-18 11:04 | RAD REPORT ---
EXAM DESCRIPTION: RAD - Chest Single View - 02/18/2019 10:45 am CLINICAL HISTORY: Shortness of breath COMPARISON: February 17 TECHNIQUE: AP portable chest image was obtained 1042 hour . FINDINGS: Lung volumes are very low. No peripheral mass or consolidation. Heart size is normal range . Trachea is midline. Lung markings are accentuated by shallow inspiration potentially masking earlie st stages of edema or infiltrate. No measurable pleural effusion and no pneumothorax. No acute bony a bnormality seen. No acute aortic finding. Patient has a large hiatal hernia. IMPRESSION: Limited shallow inspiration exam showing no peripheral mass or consolidation. No significant failure or volume overload. Mild interstitial edema or infiltrate can be masked by bod y habitus affects and shallow inspiration.
--- NOTE | 2019-02-18 11:55 | P.PN ---
Subjective Date of Service: 02/18/19 Primary Care Provider: Unknown Chief Complaint: s/p R hip salbador pain controlled. Wants to go home. Physical Examination - Vital Signs Temperature: 98.1 F Blood Pressure: 156/79 Pulse: 85 Respirations: 20 Pulse Ox (%): 96 - Physical Exam General: Alert, In no apparent distress Musculoskeletal: Other (RLE: dressing c/d/i; no significant swelling; +EHL/FHL/ GSC/TA; sensation grossly intact) - Studies Medications List Reviewed: Yes Assessment And Plan - Plan Koby is an 88 yo male with a right displaced femoral neck fracture s/p right hip hemiarthroplasty POD#1 -acute expected postoperative blood loss anemia: continue to monitor H/H -mobilize with PT; WBAT RLE with posterior hip precautions -lovenox for DVT prophylaxis Physician Review Additional Text: Impression: Right subcapital femur fracture status post mechanical fall Delirium Acute renal injury Hypertension Hypothyroidism Hyperlipidemia History of CVA Anemia likely of chronic disease Depression with Anxiety Plan: Right subcapital femur fracture status post mechanical fall: Patient is NPO for Surgery by Orthopedics. Cardiology has seen and cleared the patient for surgery. Will need to start DVT prophylaxis after surgery. Will need inpatient rehab vs SNF after surgery. Will review meds and monitor closely. I will turn the service over to Dr. Santos tomorrow. I will go over care with her. Delirium: This appears improved. Acute renal injury: Continue with IV fluids. If taking good oral intake then will DC fluids. Hypertension: Restart med. Will monitor closely and adjust. Hypothyroidism: Restart medication. Hyperlipidemia: Restart medication. History of CVA: Continue with DVT prophylaxis. Anemia likely of chronic disease: Will monitor closely. Will check Iron and B12 levels. Depression with Anxiety: Continue with meds. Will monitor closely.
[2019-02-18] MEDS: IPRATROPIUM BROM 0.5MG/2.5ML NEB SCH ×2 (13:16→20:00)
[2019-02-18] MEDS: LEVALBUTEROL 0.63 MG/3 ML NEB NEB SCH ×2 (13:16→20:00)
[2019-02-18] MEDS: ENOXAPARIN 40 MG/0.4 ML SQ SCH (13:21)
--- NOTE | 2019-02-18 15:10 | P.PN ---
Subjective Date of Service: 02/18/19 Primary Care Provider: Unknown Chief Complaint: s/p R hip salbador Pt seen and examined at bedside at this time. Chart Reviewed. Case DW with Ortho. pt this AM seems to be having difficulity breathing and staying up per at bedside. States he has been feeling weak. No other complains to have. Review of Systems 10-point ROS is otherwise unremarkable Physical Examination - Vital Signs Temperature: 98.0 F Blood Pressure: 138/83 Pulse: 81 Respirations: 20 Pulse Ox (%): 98 - Physical Exam General: Alert, Mild distress HEENT: Atraumatic, PERRLA, EOMI Neck: Supple, JVD not distended Respiratory: Normal air movement, Expiratory wheezes, Inspiratory wheezes Cardiovascular: Regular rate/rhythm, Normal S1 S2 Gastrointestinal: Normal bowel sounds, No tenderness Musculoskeletal: No tenderness Integumentary: No rashes Neurological: Normal speech, Normal tone, Normal affect Lymphatics: No axilla or inguinal lymphadenopathy - Studies Medications List Reviewed: Yes Assessment And Plan - Current Problems (Diagnosis) (1) Right femoral fracture Current Visit: Yes Status: Acute Plan: Right subcapital femur fracture status post mechanical fall -S.P ORIF POD # 1 with Ortho -PT/OT consulted. -Will require Placement to SNF vs Rehab for DC -Lovenox for Anticogulation Qualifiers: Encounter type: initial encounter Fracture type: closed Fracture alignment: displaced (2) COPD (chronic obstructive pulmonary disease) Current Visit: Yes Status: Acute Plan: Pt with COPD and not on any inhaler now -Started on Duonebs and Oxygen -ABG WNL -Will provide IS and Ambulate to prevent Postop complication Qualifiers: COPD type: chronic bronchitis Chronic bronchitis type: unspecified Qualified Code(s): J42 - Unspecified chronic bronchitis (3) History of CVA (cerebrovascular accident) Current Visit: Yes Status: Chronic (4) History of hyperlipidemia Current Visit: Yes Status: Chronic (5) History of hypertension Current Visit: Yes Status: Chronic (6) History of hypothyroidism Current Visit: Yes Status: Chronic Discharge Plan: Home Plan to discharge in: Greater than 2 days - Code Status/Comfort Care Code Status Assessed: Yes Critical Care: No
--- NOTE | 2019-02-18 17:01 | PN ---
Date of Progress Note: 02/17/2019 Subjective: Mr. Matamoros basically was cleared for orthopedic surgery by Dr. Mccabe. He underwent the surgery on 02/17/2019. He has done well postoperatively. He remained in sinus rhythm. Hemoglobin 9 .8. His creatinine is 1.28. No clinical evidence of congestive heart failure. We recommend continu ing present regimen. We will sign off his case for now. We will see him in the office as an outpati ent. I would continue telemetry monitoring for sure. JULES/CHERRIE Voice ID: [id number] Report ID: [id number]
[2019-02-18] MEDS: RANITIDINE 150 MG TABLET PO SCH (20:29)
[2019-02-18] MEDS: SERTRALINE HCL 50 MG TAB PO SCH (20:29)
[2019-02-19] MEDS: TRAMADOL HCL 50 MG TAB PO PRN (01:18)
[2019-02-19] MEDS: LEVALBUTEROL 0.63 MG/3 ML NEB NEB SCH ×4 (02:00→20:00)
[2019-02-19] MEDS: IPRATROPIUM BROM 0.5MG/2.5ML NEB SCH ×4 (02:00→20:00)
[2019-02-19 04:36] LABS: Absolute Lymphocytes (CBC) 1.2 K/uL (0.7-4.9); Basophils % 0.3 % (0-1.3); Hematocrit 27.9 % (39.6-49.0); Lymphocytes % 14.3 % (15.3-44.8); MPV 8.2 fL (7.6-11.3); RBC Red Blood Cell Count 3.09 M/uL (4.33-5.43)
[2019-02-19 04:47] LABS: Magnesium 2.5 mg/dL (1.8-2.4)
[2019-02-19] MEDS: LEVOTHYROXINE SOD 0.025 MG TAB PO SCH (05:12)
[2019-02-19] MEDS: ENOXAPARIN 40 MG/0.4 ML SQ SCH (08:16)
[2019-02-19] MEDS: CALCIUM CARB 500MG/VIT D 200 IU TAB PO SCH ×2 (08:16→20:10)
[2019-02-19] MEDS: POTASSIUM CL SA 10 MEQ TAB PO SCH (08:16)
[2019-02-19] MEDS: MAGNESIUM OXIDE 400 MG TAB PO SCH ×2 (08:18→20:11)
[2019-02-19] MEDS: FUROSEMIDE 20 MG TABLET PO SCH (08:26)
[2019-02-19] MEDS: CARVEDILOL 12.5 MG TAB PO SCH ×2 (08:27→20:11)
--- NOTE | 2019-02-19 12:25 | P.PN ---
Subjective Date of Service: 02/19/19 Primary Care Provider: Unknown Chief Complaint: s/p R hip salbador Pt seen and examined at bedside at this time. Chart Reviewed. Case DW with Ortho. PT doing well today. Feeling better than before. No C/o today. Pending SNF placement at this time. Review of Systems 10-point ROS is otherwise unremarkable Physical Examination - Vital Signs Temperature: 97.0 F Blood Pressure: 121/61 Pulse: 69 Respirations: 24 Pulse Ox (%): 92 - Physical Exam General: Alert, In no apparent distress HEENT: Atraumatic, PERRLA, EOMI Neck: Supple, JVD not distended Respiratory: Normal air movement, Expiratory wheezes, Inspiratory wheezes Cardiovascular: Regular rate/rhythm, Normal S1 S2 Gastrointestinal: Normal bowel sounds, No tenderness Musculoskeletal: No tenderness Integumentary: No rashes Neurological: Normal speech, Normal tone, Normal affect Lymphatics: No axilla or inguinal lymphadenopathy - Studies Medications List Reviewed: Yes Assessment And Plan - Current Problems (Diagnosis) (1) Right femoral fracture Current Visit: Yes Status: Acute Plan: Right subcapital femur fracture status post mechanical fall -S.P ORIF POD # 2 with Ortho -PT/OT consulted. -Will require Placement to SNF for DC. CM has been consulted. -Lovenox for Anticogulation Qualifiers: Encounter type: initial encounter Fracture type: closed Fracture alignment: displaced (2) COPD (chronic obstructive pulmonary disease) Current Visit: Yes Status: Chronic Plan: Pt with COPD and not on any inhaler now -Started on Duonebs and Oxygen -ABG WNL -Will provide IS and Ambulate to prevent Postop complication Qualifiers: COPD type: chronic bronchitis Chronic bronchitis type: unspecified Qualified Code(s): J42 - Unspecified chronic bronchitis (3) History of CVA (cerebrovascular accident) Current Visit: Yes Status: Chronic (4) History of hyperlipidemia Current Visit: Yes Status: Chronic (5) History of hypertension Current Visit: Yes Status: Chronic (6) History of hypothyroidism Current Visit: Yes Status: Chronic - Plan Pt at this time is pending SNF placement. Will f.u with CM Discharge Plan: Other Plan to discharge in: Greater than 2 days - Code Status/Comfort Care Code Status Assessed: Yes Critical Care: No
--- NOTE | 2019-02-19 12:35 | P.PN ---
Subjective Date of Service: 02/19/19 Primary Care Provider: Unknown Chief Complaint: s/p R hip salbador pain controlled. working with PT Physical Examination - Vital Signs Temperature: 97.0 F Blood Pressure: 121/61 Pulse: 69 Respirations: 24 Pulse Ox (%): 92 - Physical Exam General: In no apparent distress Musculoskeletal: Other (RLE: dressing c/d/i; mild swelling of thigh; moves toes/ ankle grossly) - Studies Medications List Reviewed: Yes Assessment And Plan - Plan Koby is an 88 yo male with a right displaced femoral neck fracture s/p right hip hemiarthroplasty POD#2 -acute expected postoperative blood loss anemia: H/H stabilizing -mobilize with PT; WBAT RLE with posterior hip precautions -lovenox for DVT prophylaxis -pending SNF placement
[2019-02-19] MEDS: SERTRALINE HCL 50 MG TAB PO SCH (20:10)
[2019-02-19] MEDS: RANITIDINE 150 MG TABLET PO SCH (20:10)
[2019-02-20] MEDS: LEVALBUTEROL 0.63 MG/3 ML NEB NEB SCH ×4 (02:00→19:55)
[2019-02-20] MEDS: IPRATROPIUM BROM 0.5MG/2.5ML NEB SCH ×4 (02:00→19:55)
[2019-02-20] MEDS: LEVOTHYROXINE SOD 0.025 MG TAB PO SCH (05:27)
[2019-02-20] MEDS: MAGNESIUM OXIDE 400 MG TAB PO SCH ×2 (09:00→21:00)
[2019-02-20] MEDS: CALCIUM CARB 500MG/VIT D 200 IU TAB PO SCH ×2 (09:00→21:00)
[2019-02-20] MEDS: CARVEDILOL 12.5 MG TAB PO SCH ×2 (09:07→22:24)
[2019-02-20] MEDS: POTASSIUM CL SA 10 MEQ TAB PO SCH (09:07)
[2019-02-20] MEDS: ENOXAPARIN 40 MG/0.4 ML SQ SCH (09:07)
[2019-02-20] MEDS: FUROSEMIDE 20 MG TABLET PO SCH (09:08)
--- NOTE | 2019-02-20 12:58 | P.PN ---
Subjective Date of Service: 02/20/19 Primary Care Provider: Unknown Chief Complaint: s/p R hip salbador Subjective: Working w/ PT pain controlled. more alert today; working with PT Physical Examination - Vital Signs Temperature: 98.0 F Blood Pressure: 121/61 Pulse: 66 Respirations: 28 Pulse Ox (%): 95 - Physical Exam General: In no apparent distress Musculoskeletal: Other (RLE: incision c/d/i; mild sanguinous drainage on dressing; +EHL/FHL/GSC/TA) - Studies Medications List Reviewed: Yes Assessment And Plan - Plan Koby is an 88 yo male with a right displaced femoral neck fracture s/p right hip hemiarthroplasty POD#3 -dressing change today -mobilize with PT; WBAT RLE with posterior hip precautions -lovenox for DVT prophylaxis -pending SNF placement
--- NOTE | 2019-02-20 13:15 | P.PN ---
Subjective Date of Service: 02/20/19 Primary Care Provider: Unknown Chief Complaint: s/p R hip salbador Pt seen and examined at bedside at this time. Chart Reviewed. Case DW with Ortho. PT doing well today. Feeling better than before. No C/o today. Pending SNF placement at this time. Review of Systems 10-point ROS is otherwise unremarkable Physical Examination - Vital Signs Temperature: 98.0 F Blood Pressure: 121/61 Pulse: 66 Respirations: 28 Pulse Ox (%): 95 - Physical Exam General: Alert, In no apparent distress HEENT: Atraumatic, PERRLA, EOMI Neck: Supple, JVD not distended Respiratory: Clear to auscultation bilaterally, Normal air movement Cardiovascular: Regular rate/rhythm, Normal S1 S2 Gastrointestinal: Normal bowel sounds, No tenderness Musculoskeletal: No tenderness Integumentary: No rashes Neurological: Normal speech, Normal tone, Normal affect Lymphatics: No axilla or inguinal lymphadenopathy - Studies Medications List Reviewed: Yes Assessment And Plan - Current Problems (Diagnosis) (1) Right femoral fracture Current Visit: Yes Status: Acute Plan: Right subcapital femur fracture status post mechanical fall -S.P ORIF POD # 3 with Ortho -PT/OT consulted. -Will require Placement to SNF for DC. CM has been consulted. -Lovenox for Anticogulation Qualifiers: Encounter type: initial encounter Fracture type: closed Fracture alignment: displaced (2) COPD (chronic obstructive pulmonary disease) Current Visit: Yes Status: Chronic Plan: Pt with COPD and not on any inhaler now -Started on Duonebs and Oxygen -ABG WNL -Will provide IS and Ambulate to prevent Postop complication Qualifiers: COPD type: chronic bronchitis Chronic bronchitis type: unspecified Qualified Code(s): J42 - Unspecified chronic bronchitis (3) History of CVA (cerebrovascular accident) Current Visit: Yes Status: Chronic (4) History of hyperlipidemia Current Visit: Yes Status: Chronic (5) History of hypertension Current Visit: Yes Status: Chronic (6) History of hypothyroidism Current Visit: Yes Status: Chronic - Plan Pt at this time is pending SNF placement. Will f.u with CM
[2019-02-20] MEDS: TRAMADOL HCL 50 MG TAB PO PRN (18:31)
[2019-02-20] MEDS: RANITIDINE 150 MG TABLET PO SCH (22:23)
[2019-02-20] MEDS: SERTRALINE HCL 50 MG TAB PO SCH (22:23)
[2019-02-21] MEDS: IPRATROPIUM BROM 0.5MG/2.5ML NEB SCH ×4 (01:20→20:00)
[2019-02-21] MEDS: LEVALBUTEROL 0.63 MG/3 ML NEB NEB SCH ×4 (01:21→20:00)
[2019-02-21 05:37] LABS: Magnesium 2.4 mg/dL (1.8-2.4)
[2019-02-21] MEDS: LEVOTHYROXINE SOD 0.025 MG TAB PO SCH (05:53)
[2019-02-21] MEDS: POTASSIUM CL SA 10 MEQ TAB PO SCH (07:28)
[2019-02-21] MEDS: MAGNESIUM OXIDE 400 MG TAB PO SCH ×2 (07:29→20:10)
[2019-02-21] MEDS: ENOXAPARIN 40 MG/0.4 ML SQ SCH (07:30)
[2019-02-21] MEDS: POTASS/SODIUM PHOSPHATE 1 PKT POWD.PACK PO SCH ×3 (07:30→09:30)
[2019-02-21] MEDS: CALCIUM CARB 500MG/VIT D 200 IU TAB PO SCH ×2 (07:31→20:10)
[2019-02-21] MEDS: FUROSEMIDE 20 MG TABLET PO SCH (07:32)
[2019-02-21] MEDS: CARVEDILOL 12.5 MG TAB PO SCH ×2 (07:39→20:11)
--- NOTE | 2019-02-21 09:56 | P.PN ---
Subjective Date of Service: 02/21/19 Primary Care Provider: Unknown Chief Complaint: s/p R hip salbador Subjective: Improving, Doing well Physical Examination - Vital Signs Temperature: 97.9 F Blood Pressure: 142/73 Pulse: 70 Respirations: 20 Pulse Ox (%): 96 - Physical Exam General: Alert, In no apparent distress, Cooperative HEENT: Atraumatic Neck: Supple Respiratory: Clear to auscultation bilaterally, Normal air movement Cardiovascular: Normal pulses, Regular rate/rhythm Gastrointestinal: Normal bowel sounds, Soft and benign, Non-distended, No masses , No rebound, No guarding Neurological: Normal speech, Normal strength at 5/5 x4 extr, Normal tone, Normal affect - Studies Medications List Reviewed: Yes Assessment & Plan Discharge Plan: Other (correction facility) Plan to discharge in: 24 Hours Physician Review Additional Text: Impression: Right subcapital femur fracture status post mechanical fall, status post right hip salbador arthroplasty Delirium Acute renal injury Hypertension Hypothyroidism Hyperlipidemia History of CVA Anemia likely of chronic disease Depression with Anxiety Plan: Right subcapital femur fracture status post mechanical fall,status post right hip salbador arthroplasty: Patient stable at this time. Patient approved to go to skilled facility. Case discussed with daughter and patient. Will discharge patient to skilled facility to continue therapy. Continue DVT prophylaxis. Delirium: This appears improved. Acute renal injury: Patient back to baseline Hypertension: Continue medication Hypothyroidism: Continue medication Hyperlipidemia: Continue medication History of CVA: Continue with DVT prophylaxis. Anemia likely of chronic disease: This can be monitored closely. Overall stable. Depression with Anxiety: Continue with meds. Will monitor closely. Time Spent Managing Pts Care (In Minutes): 55
--- NOTE | 2019-02-21 10:41 | P.DS ---
Admission Date: 02/14/19 Discharge Date: 02/21/19 Primary Care Provider: Unknown Disposition: TRANSFER TO SNF - MEDICAL Discharge Condition: GOOD Reason for Admission: s/p R hip salbador Consultations: Orthopedics-Dr. Mccabe Cardiology-Dr. Cooper Procedures: Xray: FINDINGS: Markedly displaced subcapital femoral fracture with varus angulation at the fracture site. No dislocation Surgery: Date of Procedure: 02/17/2019 Surgeon: Porfirio Mccabe MD Preoperative Diagnosis: Right displaced femoral neck fracture. Postoperative Diagnosis: Right displaced femoral neck fracture. Procedure Performed: Right hip hemiarthroplasty. Anesthesia: General endotracheal. Estimated Blood Loss: 100 mL. Complications: None. Medical problem list: Right subcapital femur fracture status post mechanical fall, status post right hip salbador arthroplasty Delirium status post surgery resolved Acute renal injury, resolved Hypertension Hypothyroidism Hyperlipidemia History of CVA Post operative anemia with iron and B12 deficiency Depression with Anxiety GERD COPD Brief History of Present Illness: 88-year-old female with history of hypertension, hyperlipidemia, hypothyroidism, GERD, COPD and prior CVA. Patient presented with mechanical fall. He sustained hip fracture. He was admitted for further evaluation and treatment. Hospital Course: Patient presented with mechanical fall. Patient suffered a right subcapital femur fracture. The patient was admitted for further evaluation. Patient seen and evaluated by cardiology for cardiac clearance and orthopedics. Patient was cleared by cardiology. Surgery was recommended. Aspirin and Plavix were held prior to surgery. Orthopedics performed a right hip hemiarthroplasty. No complications noted. Patient did have some mild delirium postoperatively. This resolved. Patient presented with acute renal injury likely from dehydration. This improved with IV hydration. Delirium resolved. Patient restarted on aspirin and Plavix. Patient continued on DVT prophylaxis-Lovenox. Patient performed well with physical therapy. Patient was evaluated for skilled placement to continue rehabilitation. Patient approved. At discharge patient will go to skilled facility to continue rehabilitation. Patient will continue with Lovenox 40 mg subcu daily for the next 15-20 days until he is more mobile. Patient will also continue with tramadol 50 mg 3 times a day as needed for pain. Patient will continue with orthopedic recommendations and follow up. Plan of care discussed with daughter and patient. Both in agreement with plan of care. Fall precautions in place. Continue with physical therapy recommendation. Patient with hypertension. This has remained stable on medication. At discharge, patient will continue with his medication-carvedilol 12.5 mg twice daily. Patient also takes Lasix 20 mg daily and Klor-Con 20 mEq daily. Patient will continue with both medication. Recommendation is to maintain blood pressures less 150/80. Further adjustment can be done by his PCP. Patient with hypothyroidism. At discharge patient will continue with his medication-levothyroxine 25 mcg daily. Patient with hyperlipidemia. At discharge he will continue with medication- Zocor 40 mg daily. Patient with history of CVA. At discharge he will continue with aspirin 81 mg daily, Plavix 75 mg daily, and magnesium oxide 400 mg twice daily. Patient with postoperative anemia. Lab showed low iron and B12. Anemia has remained stable at this time. At discharge patient will continue with iron supplementation daily and B12 supplementation daily. Recommend to recheck CBC, iron level, B12 level in 2-4 weeks to monitor stability. Patient with depression with anxiety. At discharge he will continue with his current medication-Zoloft 50 mg daily. Patient with GERD. At discharge he will continue with Zantac 150 mg daily. Patient with history of COPD. At discharge he will continue with Atrovent 1 unit dose twice daily as needed for shortness of breath. Vital Signs/Physical Exam: Temp Pulse Resp BP Pulse Ox 97.9 F 70 20 142/73 H 96 02/21/19 10:33 02/21/19 10:33 02/21/19 10:33 02/21/19 10:33 02/21/19 10:33 General: Alert, In no apparent distress, Oriented x3, Cooperative HEENT: Atraumatic Neck: Supple Respiratory: Clear to auscultation bilaterally, Normal air movement Cardiovascular: Normal pulses, Regular rate/rhythm Gastrointestinal: Normal bowel sounds, Soft and benign, Non-distended, No tenderness, No masses, No rebound, No guarding Musculoskeletal: No erythema, No tenderness, No warmth Integumentary: No erythema, No warmth, No cyanosis Neurological: Normal speech, Normal strength at 5/5 x4 extr, Normal tone, Normal affect Laboratory Data at Discharge: WBC 8.6 K/uL (4.3-10.9) 02/19/19 03:57 Hgb 9.6 g/dL (13.6-17.9) L 02/19/19 03:57 Hct 27.9 % (39.6-49.0) L 02/19/19 03:57 Plt Count 166 K/uL (152-406) 02/19/19 03:57 PT 11.7 SECONDS (9.5-12.5) 02/15/19 06:07 INR 0.99 02/15/19 06:07 APTT 30.5 SECONDS (24.3-36.9) 02/15/19 06:07 Sodium 146 mmol/L (136-145) H 02/21/19 04:33 Potassium 4.0 mmol/L (3.5-5.1) 02/21/19 04:33 BUN 35 mg/dL (7-18) H 02/21/19 04:33 Creatinine 1.13 mg/dL (0.55-1.3) 02/21/19 04:33 Glucose 107 mg/dL (74-106) H 02/21/19 04:33 Phosphorus 2.0 mg/dL (2.5-4.9) L 02/21/19 04:33 Magnesium 2.4 mg/dL (1.8-2.4) 02/21/19 04:33 Total Bilirubin 0.6 mg/dL (0.2-1.0) 02/15/19 06:07 AST 28 U/L (15-37) 02/15/19 06:07 ALT 27 U/L (12-78) 02/15/19 06:07 Alkaline Phosphatase 77 U/L (45-117) 02/15/19 06:07 Troponin I 0.05 ng/mL (0.0-0.045) H 02/15/19 06:07 Home Medications: Acetaminophen [Tylenol Extra Strength] 1 tab PO BID 02/14/19 Aspirin 1 tab PO DAILY 02/14/19 Calcium Carbonate/Vitamin D3 [Calcium 600 with Vit D Chew Tb] 1 tab PO BID 02/14 Carvedilol 1 tab PO BID 02/14/19 Clopidogrel Bisulfate [Plavix] 1 tab PO DAILY 02/14/19 Furosemide [Lasix] 1 tab PO DAILY 02/14/19 Ipratropium Dundas 1 vial IH BID 02/14/19 Levothyroxine Sodium 1 tab PO DAILY 02/14/19 Magnesium Oxide 1 tab PO BID 02/14/19 Multivitamins For Seniors 1 tab PO DAILY 02/14/19 Nitroglycerin 1 tab PO SEECOM PRN 02/14/19 Potassium Oral Tab [Klor-Con 10 mEq Tab*] 20 meq PO DAILY 02/14/19 Ranitidine [Zantac*] 1 tab PO BEDTIME 02/14/19 Sertraline [Zoloft*] 1 tab PO BEDTIME 02/14/19 Simvastatin 1 tab PO BEDTIME 02/14/19 Cyanocobalamin (Vitamin B-12) [Vitamin B-12] 1,000 mcg PO DAILY #90 tablet 02/21 Docusate [Colace Cap*] 100 mg PO DAILY PRN #30 cap 02/21/19 Enoxaparin Sodium [Lovenox 40 MG INJ*] 40 mg SQ DAILY #20 syr 02/21/19 Ferrous Sulfate [Iron] 325 mg PO BID #60 tablet 02/21/19 traMADol HCL [Ultram*] 50 mg PO TID PRN #20 tab 02/21/19 New Medications: Cyanocobalamin (Vitamin B-12) [Vitamin B-12] 1,000 mcg PO DAILY #90 tablet Docusate [Colace Cap*] 100 mg PO DAILY PRN #30 cap PRN Reason: Constipation Enoxaparin Sodium [Lovenox 40 MG INJ*] 40 mg SQ DAILY #20 syr Ferrous Sulfate [Iron] 325 mg PO BID #60 tablet traMADol HCL [Ultram*] 50 mg PO TID PRN #20 tab PRN Reason: Pain Patient Discharge Instructions: 1. Patient will be transferred to SNF. 2. Patient presented with mechanical fall. Patient suffered a right subcapital femur fracture. The patient was admitted for further evaluation. Patient seen and evaluated by cardiology for cardiac clearance and orthopedics. Patient was cleared by cardiology. Surgery was recommended. Aspirin and Plavix were held prior to surgery. Orthopedics performed a right hip hemiarthroplasty. No complications noted. Patient did have some mild delirium postoperatively. This resolved. Patient presented with acute renal injury likely from dehydration. This improved with IV hydration. Delirium resolved. Patient restarted on aspirin and Plavix. Patient continued on DVT prophylaxis-Lovenox. Patient performed well with physical therapy. Patient was evaluated for skilled placement to continue rehabilitation. Patient approved. At discharge patient will go to skilled facility to continue rehabilitation. Patient will continue with Lovenox 40 mg subcu daily for the next 15-20 days until he is more mobile. Patient will also continue with tramadol 50 mg 3 times a day as needed for pain. Patient will continue with orthopedic recommendations and follow up. Plan of care discussed with daughter and patient. Both in agreement with plan of care. Fall precautions in place. Continue with physical therapy recommendation. 3. Patient with hypertension. This has remained stable on medication. At discharge, patient will continue with his medication-carvedilol 12.5 mg twice daily. Patient also takes Lasix 20 mg daily and Klor-Con 20 mEq daily. Patient will continue with both medication. Recommendation is to maintain blood pressures less 150/80. Further adjustment can be done by his PCP. 4. Patient with hypothyroidism. At discharge patient will continue with his medication-levothyroxine 25 mcg daily. 5. Patient with hyperlipidemia. At discharge he will continue with medication-Zocor 40 mg daily. 6. Patient with history of CVA. At discharge he will continue with aspirin 81 mg daily, Plavix 75 mg daily, and magnesium oxide 400 mg twice daily. 7. Patient with postoperative anemia. Lab showed low iron and B12. Anemia has remained stable at this time. At discharge patient will continue with iron supplementation daily and B12 supplementation daily. Recommend to recheck CBC, iron level, B12 level in 2-4 weeks to monitor stability. 8. Patient with depression with anxiety. At discharge he will continue with his current medication-Zoloft 50 mg daily. 9. Patient with GERD. At discharge he will continue with Zantac 150 mg daily. 10. Patient with history of COPD. At discharge he will continue with Atrovent 1 unit dose twice daily as needed for shortness of breath. Diet: AHA Activity: Fall precautions Time spent managing pt's care (in minutes): 55
[2019-02-21] MEDS: RANITIDINE 150 MG TABLET PO SCH (20:10)
[2019-02-21] MEDS: SERTRALINE HCL 50 MG TAB PO SCH (20:10)
[2019-02-21] MEDS: TRAMADOL HCL 50 MG TAB PO PRN (23:00)
[2019-02-22] MEDS: LEVALBUTEROL 0.63 MG/3 ML NEB NEB SCH ×2 (02:00→08:10)
[2019-02-22] MEDS: IPRATROPIUM BROM 0.5MG/2.5ML NEB SCH ×2 (02:00→08:10)
[2019-02-22 04:27] VITALS: TEMP 97.7
[2019-02-22] MEDS: LEVOTHYROXINE SOD 0.025 MG TAB PO SCH (06:25)
[2019-02-22 07:06] LABS: Phosphorus 2.4 mg/dL (2.5-4.9); Potassium 4.1 mmol/L (3.5-5.1)
[2019-02-22 08:32] VITALS: BP 160/76
[2019-02-22] MEDS: POTASSIUM CL SA 10 MEQ TAB PO SCH (08:35)
[2019-02-22] MEDS: CARVEDILOL 12.5 MG TAB PO SCH (08:36)
[2019-02-22] MEDS: FUROSEMIDE 20 MG TABLET PO SCH (08:36)
[2019-02-22] MEDS: MAGNESIUM OXIDE 400 MG TAB PO SCH (08:36)
[2019-02-22] MEDS: ENOXAPARIN 40 MG/0.4 ML SQ SCH (08:37)
[2019-02-22] MEDS: CALCIUM CARB 500MG/VIT D 200 IU TAB PO SCH (08:37)
[2019-02-22 08:54] VITALS: O2SAT 96
== END 2019-02-22 09:50 | DRG 470 ==
LOC: ER 17:02 → ERHOLD 20:13 → 4TH 20:55
PROVIDERS: ADMIT Hospitalist; ATTEND Family Medicine
PROC: 0T9B70Z Drainage of Bladder with Drainage Device, Via Natural or Artificial Opening (ICD-10-PCS; 2019-02-14)
PROC: 0SRR0J9 Replacement of Right Hip Joint, Femoral Surface with Synthetic Substitute, Cemented, Open Approach (ICD-10-PCS; principal; 2019-02-17 12:00)
DX: S72.011A Unspecified intracapsular fracture of right femur, initial encounter for closed fracture (principal); N17.9 Acute kidney failure, unspecified; D62 Acute posthemorrhagic anemia; I10 Essential (primary) hypertension; E03.9 Hypothyroidism, unspecified; E78.5 Hyperlipidemia, unspecified; J44.9 Chronic obstructive pulmonary disease, unspecified; R41.0 Disorientation, unspecified; D63.8 Anemia in other chronic diseases classified elsewhere; F41.8 Other specified anxiety disorders; Z86.73 Personal history of transient ischemic attack (TIA), and cerebral infarction without residual deficits
CPT/HCPCS: 36415; 71045; 72170; 80048; 80053; 81003; 81015; 82607; 82728; 82805; 82947; 83540; 83605; 83735; 83880; 84100; 84466; 84484; 85014; 85018; 85025; 85610; 85730; 86850; 86900; 86901; 88305; 88311; 93005; 94640; 94760; 96374; 96375; 97110; 97112; 97161; 97530; 99285; J0690; J1630; J1650; J2270; J2370; J2405; J2704; J3010; J7030; J7120